=== PATIENT | female | born 1930 | race Caucasian/White ===

== ENCOUNTER 2017-04-30 07:49 | Observation (INO) | payer MEDICARE, MEDICAID ==
[2017-04-30] MEDS ORDERED: Ondansetron INJ* 2 MG/ML VIAL IV ONE (08:03)
[2017-04-30] MEDS ORDERED: Morphine INJ* 2 MG/ML 1 ML SYRINGE IV ONE (08:03)
[2017-04-30 09:08] LABS: Hematocrit 34 % (35-47); Hemoglobin 11.1 g/dl (12.0-16.0); Mean Corpuscular HGB Conc 33 g/dl (31-36); Mean Corpuscular Hemoglobin 28 pg (27-31); Mean Corpuscular Volume 86 fL (80-97); Mean Platelet Volume 9 um3 (7.4-10.4); Red Blood Count 3.91 10^6/ul (4.0-5.4); Red Cell Distribution Width 16 % (10.5-15); White Blood Count 6.6 10^3/ul (3.5-10.8)
[2017-04-30 09:25] LABS: Albumin 3.4 g/dL (3.2-5.2); BUN/Creatinine Ratio 22.4 (8-20); C Reactive Protein 7.22 mg/L (< 5.00); EGFR African American 81.6 (>60); EGFR Non-African American 63.4 (>60); Globulin 2.6 g/dL (2-4); Magnesium 2.2 mg/dL (1.9-2.7); Potassium 4.1 mmol/L (3.5-5.0); Total Bilirubin 0.5 mg/dL (0.2-1.0)
[2017-04-30] MEDS ORDERED: Iohexol 300* (CONTRAST) 10 ML SDV IV ONE (09:35)
[2017-04-30 10:40] LABS: Urine Bilirubin Negative (Negative); Urine Glucose Negative (Negative); Urine Nitrite Negative (Negative)
--- NOTE | 2017-04-30 10:59 | RAD ---
Indication: Abdominal pain. Contrast: Administered 87.7 ml of OMNIPAQUE 300 mgi/ml CT of the abdomen and pelvis was performed after oral and IV contrast administration. Coronal and sagittal reconstructed images were obtained. The lung bases demonstrate no pleural fluid, nodules or masses. Heart is of normal size without evidence of pericardial effusion. There is a hiatal hernia noted. The liver is normal in size. Lobulated contour of liver consistent with cirrhosis is noted. The gallbladder is mildly distended. Common duct is not dilated In the head of the pancreas there is a large nonenhancing mass measuring 3.6 cm in greatest dimension. Small peripancreatic lymph nodes are noted. There is pancreatic duct dilatation with atrophy of the neck, body and tail of the pancreas. Findings are consistent with mass at the head of the pancreas. The spleen is normal in size. No adrenal lesions are noted. The kidneys demonstrate no hydronephrosis. No dilated loops of bowel are noted. No retroperitoneal or pelvic lymphadenopathy is noted. No evidence of abdominal aortic aneurysm is noted. The colon demonstrates diverticulosis without definite evidence of diverticulitis. Urinary bladder is unremarkable. Bony structures demonstrate several areas of lucency which is nonspecific and may represent hemangiomas. IMPRESSION: 3 cm mass is noted at the head of the pancreas. Pancreatic ductal dilatation is noted. No definite hepatic lesions are noted although peripancreatic lymph nodes are noted. Multiple rib fractures are noted on the left. Findings discussed with Dr. Campo at 10:56 AM.
[2017-04-30] MEDS ORDERED: Ondansetron INJ* 2 MG/ML VIAL IV PRN (12:11)
[2017-04-30] MEDS ORDERED: Morphine INJ* 2 MG/ML 1 ML SYRINGE IV PRN (12:11)
[2017-04-30] MEDS ORDERED: Acetaminophen TAB* 325 MG PO PRN (12:11)
[2017-04-30] MEDS ORDERED: NS 0.9% 1000 ML* 1,000 ML IV SCH (12:15)
[2017-04-30] MEDS: Heparin VIAL(*) 5000 UNITS/ML VIAL (FIVE THOUSAND) SUBCUT SCH ×2 (14:36→21:07)
--- NOTE | 2017-04-30 15:30 | HP ---
ATTENDING PHYSICIAN ADDENDUM NOW INCLUDED ON THIS REPORT CC: Dr. Marge Schaefer; Dr. rCuz; Dr. Ruelas * HISTORY AND PHYSICAL: DATE OF ADMISSION: 04/30/17 PRIMARY CARE PROVIDER: Marge Schaefer MD. ATTENDING PHYSICIAN WHILE IN THE HOSPITAL: Arianna Tavarez MD *(report dictated by Reji Salinas NP) CONSULTING MICA SPREADER: Dr. Cruz. CONSULTING KEYPUNCHER: Dr. Ruelas. CHIEF COMPLAINT: Right upper quadrant pain. HISTORY OF PRESENT ILLNESS: Mrs. Rogers is an 87-year-old female patient who has a history of oqho-qj-jfvcoour intellectual developmental delay. She has a history of OCD, ADD, hypertension, esophageal stricture, sinus bradycardia, syncope, anxiety, esophagitis, hypothyroidism, arthritis, DJD, and hyperlipidemia. She comes in today stating that she woke up this morning, according to the aide that is with her, she took her pills just fine and then she suddenly developed some right upper quadrant discomfort and pain. Last week , she had episodes of nausea and vomiting and diarrhea, but they felt that it was related to gastroenteritis, viral illness that have been going around the facility. The symptoms resolved. She never had pain then. There have been no reports of weight loss. No fevers or chills. There was a concern because of the discomfort and the pain and they brought her into the hospital. She was evaluated. She denied having any chest pain. No shortness of breath. No recent cough. No recent fevers. Because of the discomfort, she had a CT scan, which ultimately showed a 3 cm pancreatic mass. Because of this we were asked to evaluate for admission. PAST MEDICAL HISTORY: Significant for: 1. OCD. 2. ADD. 3. Hypertension. 4. Esophageal stricture. 5. Sinus bradycardia. 6. Syncope. 7. Anxiety. 8. Esophagitis. 9. Hypothyroidism. 10. Arthritis. 11. DJD. 12. Hyperlipidemia. PAST SURGICAL HISTORY: Denied. MEDICATIONS: The home meds according to the list that was provided by the facility includes: 1. Robitussin 5 mg p.o. every 4 hours as needed. 2. Amlodipine 10 mg daily. 3. Nasacort 110 mcg both nares at bedtime. 4. Zantac 150 mg p.o. daily as needed. 5. Ditropan 5 mg p.o. daily. 6. Prilosec 20 mg daily. 7. Multivitamin 1 tablet daily. 8. Lisinopril 10 mg daily. 9. Synthroid 75 mcg daily. 10. Fexofenadine 180 mg daily. 11. Colace 100 mg daily. 12. Peridex mouthwash 5 cc p.o. b.i.d. 13. Calcium with vitamin D 1 tablet p.o. b.i.d. 14. Bacitracin 1 application topically daily. 15. Lipitor 20 mg a day. 16. Aspirin 81 mg daily. 17. Artificial tears 1 drop both eyes t.i.d. 18. Tylenol 650 mg every 4 hours as needed. ALLERGIES: Her allergies to medications include PENICILLIN. FAMILY HISTORY: Really unknown, she does state that her father may have been hit by a train. She, again, does not really know much about her family. SOCIAL HISTORY: She does not smoke. She does not drink. She does have one family member who is still involved in her life, I believe it is a niece; however, according to the [facility] paperwork, her healthcare proxy is the surrogate decision making committee. REVIEW OF SYSTEMS: There is no documented fever. She denied having any significant weight change. There was no double vision. There was no ear discharge. She denied having any rhinorrhea. No sore throat. No thyroid enlargement. Denied having any chest pain. There was no orthopnea. No nocturnal dyspnea. There was abdominal pain as per HPI. There was nausea and vomiting last week, but none now. No dysuria, no frequency. No seizure. There was no loss of consciousness. No pruritus and no skin ulcerations. Review of 14 systems completed, all others are negative. PHYSICAL EXAMINATION GENERAL: At this time, Mrs. Rogers is an 87-year-old female patient. She is sitting in the ER stretcher. She does not appear to be in any acute distress. VITAL SIGNS: Blood pressure 148/68, pulse of 89, respirations 18, O2 sat 94%, temperature 98.1. HEENT: Head is atraumatic and normocephalic. Eyes: EOMs are intact. Sclerae are anicteric, not pale. Throat: Oral mucosa appear to be moist. No oropharyngeal erythema. NECK: Supple. LUNGS: Clear to auscultation. No wheezes, rales, or rhonchi. HEART: Sounds S1, S2. Regular rate and rhythm. No murmurs, rubs, or gallops. ABDOMEN: Soft, flat. There was tenderness in the right upper quadrant. Bowel sounds present. EXTREMITIES: Pulses were 2+ throughout. She is able to move all 4 extremities with 5/5 strength. NEUROLOGIC: The patient is awake, alert, oriented x3. Tongue midline. Lithographic Press Operator Apprentice are equal. No gross focal deficits. SKIN: Grossly intact. LABORATORY DATA/DIAGNOSTIC STUDIES: Labs today revealed a WBC of 6.6, RBC of 3.91, hemoglobin 11.1, hematocrit of 34, platelet count of 138. Sodium is 138, potassium 4.1, chloride of 108, bicarb 24, BUN 19, creatinine of 0.85, glucose 124. Lactate 0.8. Calcium 9.0, mag 2.2. Total bili 0.5, AST 24, ALT 33, alk phos 133. CRP of 7.2. BNP is 66. Albumin is 3.4. Lipase was 189, amylase was 70. Urine obtained, negative. She did have an abdominal and pelvis CT scan, which showed, impression: 3 cm mass noted in the head of the pancreas, pancreatic ductal dilatation is noted. No definite hepatic lesions are noted, although peripancreatic lymph nodes are noted. There are multiple rib fractures on the left. I did touch-base with Dr. Tay about the rib fractures. They said that they appear to be old and healed. She did have an EKG obtained today as well, which revealed a normal sinus rhythm with a rate of 60, no ST elevations or T-wave inversions. Reviewed that the previous EKG was similar with the exception now she is not noted to be tachycardic. Old medical records were reviewed. ASSESSMENT AND PLAN: Mrs. Rogers is an 87-year-old female patient coming in to ER today with complaints of abdominal pain. On evaluation, was found to have pancreatic mass. She will be admitted under inpatient status for: 1. Pancreatic mass. Again, certainly this is concerning for possible neoplasm. Does not state that she is having so much discomfort; however, given the fact she does not appear to be obstructed, based on her labs. I did touch base with Dr. Ruelas who will evaluate the patient and I also touched base with Dr. Cruz who will also evaluate the patient, and I also touched base with our social workers here to get to possibly convene the surrogate decision making committee as we may need to do procedures to help better define this mass , but for the time being, I will control her pain with morphine and I have ordered p.r.n. Zofran should she be nauseous. I will hydrate her and put on a clear liquid diet. 2. Obsessive-compulsive disorder. Continue supportive care. 3. Attention deficit disorder. Continue supportive care. 4. Hypertension. Continue medicines as prescribed. 5. History of esophageal stricture, not an active issue. We will monitor. 6. Syncope. Again, not an active issue. We will follow. 7. Esophagitis. Continue PPI therapy. 8. Anxiety. Continue supportive care. 9. History of sinus bradycardia. She is stable now. We will monitor. 10. Hypothyroidism. Continue Synthroid. 11. Arthritis. Continue current medications as prescribed. 12. Degenerative joint disease. Continue p.r.n. Tylenol. 13. Hyperlipidemia. Continue her statin therapy. 14. DVT prophylaxis. She is high risk. She will be placed on heparin subcu. 15. Code status: She is full code. 16. Fluids, electrolytes, and nutrition: Clear liquid diet. TIME SPENT: Time spent on this admission was 60 minutes, greater than half the time was spent [id number] with the patient obtaining my history and physical, the other half of the time was spent going over the plan of care with the patient and implementing the plan of care. I did discuss plan of care with my attending, Dr. Tavarez, she is in agreement. REJI SALINAS NP ADDENDUM: Ms. Rogers is an 87-year-old female with moderate intellectual developmental delay who presented to the hospital complaining of right upper quadrant abdominal pain and she was noted to have a 3-cm pancreatic mass. The patient is going to be admitted for further evaluation by Oncology and GI. For further details of the patient's presentation and plan, please see history and physical dictated by Reji Salinas NP, on 04/30/17 with which I agree. ARIANNA ATVAREZ MD [id number]/[facility] #: [id number]/CPS #: [id number] KIRILL
--- NOTE | 2017-04-30 16:20 | HP ---
HISTORY AND PHYSICAL:* ADDENDUM: Ms. Rogers is an 87-year-old female with moderate intellectual developmental delay who presented to the hospital complaining of right upper quadrant abdominal pain and she was noted to have a 3-cm pancreatic mass. The patient is going to be admitted for further evaluation by Oncology and GI. For further details of the patient's presentation and plan, please see history and physical dictated by Reji Salinas NP, on 04/30/17 with which I agree. [id number]/[facility] #: [id number] [facility]
[2017-04-30] MEDS ORDERED: ALPRAZolam TAB* 0.25 MG PO ONE (16:44)
--- NOTE | 2017-04-30 18:33 | CONS ---
GASTROENTEROLOGY CONSULT: DATE OF CONSULTATION: 04/30/17 CONSULTING PHYSICIANS: Reji Salinas NP; Jaime Cruz; Marge Schaefer. REASON FOR CONSULTATION: Right-sided abdominal pain beginning this morning suddenly -the patient having a month of reduced appetite and 5 to 7-pound weight loss. HISTORY: This 87-year-old woman who has been in group homes for over 30 years developed abdominal pain this morning with no emesis, diarrhea or fever and was brought to the emergency room. She can give part of the history and the nurses ' aide, Amelie ([phone]) can give additional history which is further supplemented by the patient's healthcare sister in law / proxy, Kaci Rojas ([phone]), who sees the patient regularly for outings. Apparently, the patient has always had a good appetite and would frequently go back for seconds at the facility or restaurants. A month or two ago, she began eating less, going back for seconds a little less and there has been a slight weight loss of 5-7lbs There had not been any complaints of pain and no vomiting or dysphagia (no mention of the illness in the HPI). The nurses' aide says that last week the patient was generally fine and was fine over the weekend eating normally. She attended all her activities outside the home. Yesterday, she also had a normal day and a normal night's sleep. This morning, she suddenly started complaining of right-sided abdominal pain and began to rub the area. She did not eat breakfast and she has not had any diarrhea or fever. She was hospitalized 3 years ago with nausea and vomiting, and an upper endoscopy showed small to medium hiatal hernia and mild esophageal erosions. She had been on omeprazole from before the admission. This was continued. The symptoms all resolved and the cause was not clear. Caustic esophagitis from pills was considered. Anxiety was considered. In 2009, she had had a hyperplastic gastric antral polyp removed at EGD investigating vague complaints. It was not felt to be the cause She has no history of abdominal surgery or indeed any surgery PAST MEDICAL HISTORY: 1. Chronic anxiety. 2. Mental retardation. 3. Hypertension. 4. History of GERD with minimal esophageal ring - dilated 7 or 8 years ago to 18 mm with no rent observed. 5. Chronic fatigue - she has been using a walker for about a year getting short of breath with exertion. SOCIAL HISTORY: She is single and was placed in a alf decades ago. Per report of the patient's [id number], her mother was also placed in a alf as were 2 other sisters. Brother of the proxy one of her sisters, but all of them had leaving Kaci Rojas, her proxy. Her phone number is [phone]. She takes the patient out for lunch a couple of times a month and on other outings. REVIEW OF SYSTEMS: She had some intermittent falls, but has not had any fractures recently. There has been no head trauma. There is no history of bleeding, blood clots, VT, arrhythmias, stroke, neuropathy, hemoptysis, or TB. She does have a chortling cough every few days, but this is longstanding (at least 5 years per the aide with her) and she does not have any trouble with her bowels with no rectal bleeding and no need for laxatives. EXAM: She is an elderly woman in bed, rubbing her right upper quadrant recurrently. She is otherwise in no distress. HEENT exam is unremarkable. She has no icterus or adenopathy. The lungs are clear with no consolidation. Heart sounds are regular. Breast and pelvic exams deferred. The abdomen is symmetric with no scars. Slightly diminished bowel sounds, though they are of normal pitch. The abdomen is soft. There is no guarding or rigidity. Rectal: Deferred. Extremities show no edema. Neurologic is nonfocal with normal cranial nerves, movement of all 4 extremities, coordination, and alertness. She knows she is in the hospital, the identity of her proxy, and nurses' aide with her. IMAGING: CT of the abdomen shows a liver contour with large wavy indentations inferred to be cirrhosis. Pancreas is atrophic with no calcifications and the duct is grossly dilated and there is a mass in the head of the pancreas 3 to 3.5 cm. On a May 2014 CT the duct in retrospect was very mildly dilated. 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 The spleen is normal. LABORATORY DATA: Remarkable for normal white count of 6.6, hemoglobin 11.1 which is consistent with her baseline that is usually between 10.7 and 12.0. LFTs are normal except for a mild rise in alkaline phosphatase to 133 with bilirubin 0.5 and lipase 189. Old ALTs were normal back to 2007 except for a single 64 on 03/18/11 IMPRESSION: This 87-year-old woman with history of a known prior hiatal hernia and mild gastroesophageal reflux disease, on chronic maintenance omeprazole ( 20mg listed on her first [facility] H[facility]P in 2009) this morning had the onset of abdominal pain after a month of a mild reduction in appetite, though with no vomiting. Imaging shows a mass in the head of the pancreas, but no inflammatory signs. Her lipase is up mildly . Most likely, the current pain is due to a mild pancreatitis related to the expanding mass even though classically masses in this area are associated with "painless jaundice". The pain could be coming from some involvement of local venous structures in the right upper quadrant. It seems unlikely with this sequence of events (including no NSAIDs) that while on chronic omeprazole, she would have a peptic explanation for this. She has had symptoms in the past trigger an obsessional response and it may be that a relatively mild pain has triggered such a pattern again. It, therefore, seems reasonable to potentially give her a dose of a benzodiazepine and then a low-fat diet could be offered. Biliary colic and early cholecystitis cannot be ruled out, but there is no strong evidence for that currently - the GB wall is normal and WBC normal. In discussing the overall situation with her [id number]-qb-tdd/proxy, a strategy favoring a noninvasive approach seemed to be the proxy's choice and given that chemotherapy or surgery are exceedingly unlikely to be selected, this seems reasonable. The pancreatic mass may be starting to impinge upon the biliary system, but at this point that is very preliminary and early. There is no indication for ERCP or considering a stent now. There might be reason for palliation down the line, but it is much too early to begin making plans. [id number]/[facility] #: [id number] [facility] HOSPITALMariusz
--- NOTE | 2017-04-30 18:51 | ED ---
Katharine Miles SooYoung, scribed for George Campo MD on 04/30/17 at 0801 . Abdominal Pain/Female - HPI Summary HPI Summary: An 87 y/o F CARTER presents to ED with c/o RLQ abd pain onset this AM LICENSED THERAPIST. Pt lives in a state run residential and is present with a caregiver. Denies n/v/d, constipation. She states she has had similar past episodes of this pain. PMHx includes HTN, hyperlipidemia, CHF, pt deficit disorder, chronic esophagitis, OCD , hyperthyroidism, dry eye syndrome, aortic valve disorder, syncopal episodes. - History of Current Complaint Chief Complaint: EDAbdPain Stated Complaint: LOWER RIGHT ABD PAIN Time Seen by Provider: 04/30/17 07:56 Hx Obtained From: Patient, Family/Plumbing Foreman, Medical Records Hx Last Menstrual Period: n/a Onset/Duration: Lasting Hours, Still Present Timing: Constant Severity Currently: Severe Associated Signs and Symptoms: Positive: Other: - neg: constipation. Negative: Nausea, Vomiting, Diarrhea Allergies/Adverse Reactions: Allergies Allergy/AdvReac Type Severity Reaction Status Date / Time Penicillins Allergy Intermediate Unknown Verified 04/02/16 11:12 Reaction Details seasonal allergies Allergy Eyes Uncoded 04/02/16 11:12 Itchy/Swollen/Red/Watery Home Medications: Home Medications Bacitracin OINTMENT ROLF* 1 applic TOPICAL DAILY 04/30/17 [History Confirmed 05/11] Calcium Carbonate-Vitamin D [Calcium 600 + D] 1 tab PO BID 04/30/17 [History Confirmed 04/30/17] Multivitamins/Minerals TAB* [Theragran/minerals TAB*] 1 tab PO DAILY 04/30/17 [ History Confirmed 04/30/17] Oxybutynin XL TAB* [Ditropan XL TAB*] 5 mg PO DAILY 04/30/17 [History Confirmed 04/30/17] Triamcinolone Acetonide (Nasal [Nasacort Allergy 24Hr Chi] 110 mcg BOTH NARES BEDTIME 04/30/17 [History Confirmed 04/30/17] guaiFENesin LIQ* [Robitussin*] 5 mg PO Q4H PRN 04/30/17 [History Confirmed 04/30] PMH/Surg Hx/FS Hx/Imm Hx Previously Healthy: No Endocrine/Hematology History: Reports: Hx Anticoagulant Therapy - ASA, Hx Thyroid Disease - HYPO Denies: Hx Diabetes Cardiovascular History: Reports: Hx Angina, Hx Hypercholesterolemia, Hx Hypertension, Hx Syncope, Other Cardiovascular Problems/Disorders - IRREGULAR HEARTBEAT Denies: Hx Congestive Heart Failure, Hx Deep Vein Thrombosis, Hx Myocardial Infarction, Hx Pacemaker/ICD Respiratory History: Denies: Hx Asthma, Hx Chronic Obstructive Pulmonary Disease (COPD), Hx Lung Cancer GI History: Denies: Hx Gall Bladder Disease, Hx Gastrointestinal Bleed, Hx Ulcer, Hx Urosepsis Comment Only: Other GI Disorders - esophageal stricture History: Reports: Other Problems/Disorders - Stress incontinence Denies: Hx Kidney Stones, Hx Renal Disease Musculoskeletal History: Reports: Hx Arthritis - osteoarthritis, Other Musculoskeletal History - lt knee degenerative joint disease, osteoarthritis Sensory History: Reports: Hx Contacts or Glasses, Hx Vision Problem, Hx Hearing Aid, Hx Hearing Problem Comment Only: Other Sensory Impairments - R & L laser YAG capsulotomy 2006 Opthamlomology History: Reports: Hx Contacts or Glasses, Hx Vision Problem Comment Only: Other Sensory Impairments - R & L laser YAG capsulotomy 2006 Neurological History: Reports: Hx Developmental Delay, Other Neuro Impairments/ Disorders - ADD, OCD, Anxiety Denies: Hx Dementia, Hx Migraine, Hx Seizures, Hx Transient Ischemic Attacks (TIA) Psychiatric History: Reports: Hx Anxiety, Other Psychiatric Issues/Disorders - ADD, OCD Denies: Hx Depression, Hx Schizophrenia, Hx Bipolar Disorder - Cancer History Hx Chemotherapy: No Hx Radiation Therapy: No - Surgical History Surgery Procedure, Year, and Place: 2006 R&L laser YAG capsulotomy. moles removed - Immunization History Date of Tetanus Vaccine: 04/04/2010 Date of Influenza Vaccine: 08/31/13 Infectious Disease History: Reports: Hx of Known/Suspected MRSA Denies: Hx Clostridium Difficile, Hx Hepatitis, Hx Human Immunodeficiency Virus (HIV), Hx Shingles, Hx Tuberculosis, Hx Known/Suspected VRE, Hx Known/ Suspected VRSA, History Other Infectious Disease, Traveled Outside the [place] in Last 30 Days - Family History Known Family History: Positive: Unknown, Other - neg Breast CA - Social History Occupation: Disabled Lives: Jail Alcohol Use: None Hx Substance Use: No Substance Use Type: Reports: None Hx Tobacco Use: No Smoking Status (MU): Never Smoked Tobacco Review of Systems Negative: Fever Positive: Abdominal Pain, Other - neg: constipation. Negative: Vomiting, Diarrhea, Nausea All Other Systems Reviewed And Are Negative: Yes Physical Exam - Summary Physical Exam Summary: VITAL SIGNS: Reviewed. GENERAL: Patient is a well-developed and nourished female who is lying comfortable in the stretcher. Patient is not in any acute respiratory distress. PT IN MILD DISTRESS SECONDARY TO PAIN; MOANING DURING PE. HEAD AND FACE: Normocephalic and atraumatic. EYES: PERRLA, EOMI x 2, No injected conjunctiva. EARS: Hearing grossly intact. Ear canals and tympanic membranes are WNL. MOUTH: Oropharynx within normal limits. NECK: Supple, trachea is midline, no adenopathy, no JVD. CHEST: Symmetric, no tenderness at palpation LUNGS: Clear to auscultation bilaterally. MILD CRACKLES AT BASE OF LUNGS. CVS: RRR, S1 and S2 present, no murmurs or gallops appreciated. ABDOMEN: Soft. No signs of distention. Positive bowel sounds. No abdominal bruit or pulsations. TENDERNESS IN RLQ, GUARDING WITHOUT REBOUND. EXTREMITIES: FROM in all major joints, no edema, no cyanosis or clubbing. NEURO: Alert and oriented x 3. No acute neurological deficits. Speech is normal. SKIN: Dry and warm Triage Information Reviewed: Yes Vital Signs On Initial Exam: Initial Vitals BP 117/105 04/30/17 07:56 Vital Signs Reviewed: Yes Diagnostics - Vital Signs Vital Signs Temp Pulse Resp BP Pulse Ox 04/30/17 12:00 80 125/102 91 04/30/17 11:30 62 110/57 89 04/30/17 11:00 66 105/60 94 04/30/17 10:45 67 107/51 92 04/30/17 10:00 73 94 04/30/17 09:30 89 141/120 91 04/30/17 09:00 70 148/68 96 04/30/17 08:36 20 04/30/17 08:30 65 100/79 94 04/30/17 08:00 73 127/74 95 04/30/17 07:57 98.1 F 75 20 127/74 95 04/30/17 07:56 117/105 - Laboratory Lab Results: Lab Results 04/30/17 04/30/17 04/30/17 Range/Units 08:53 08:53 08:53 WBC 6.6 (3.5-10.8) 10^3/ul RBC 3.91 L (4.0-5.4) 10^6/ul Hgb 11.1 L (12.0-16.0) g/dl Hct 34 L (35-47) % MCV 86 (80-97) fL MCH 28 (27-31) pg MCHC 33 (31-36) g/dl RDW 16 H (10.5-15) % Plt Count 138 L (150-450) 10^3/ul MPV 9 (7.4-10.4) um3 Neut % (Auto) 64.7 (38-83) % Lymph % (Auto) 20.0 L (25-47) % Gilmer % (Auto) 8.1 (1-9) % Eos % (Auto) 6.5 H (0-6) % Baso % (Auto) 0.7 (0-2) % Absolute Neuts (auto) 4.3 (1.5-7.7) 10^3/ul Absolute Lymphs (auto) 1.3 (1.0-4.8) 10^3/ul Absolute Monos (auto) 0.5 (0-0.8) 10^3/ul Absolute Eos (auto) 0.4 (0-0.6) 10^3/ul Absolute Basos (auto) 0 (0-0.2) 10^3/ul Absolute Nucleated RBC 0 10^3/ul Nucleated RBC % 0 Sodium 138 (133-145) mmol/L Potassium 4.1 (3.5-5.0) mmol/L Chloride 108 (101-111) mmol/L Carbon Dioxide 24 (22-32) mmol/L Anion Gap 6 (2-11) mmol/L BUN 19 (6-24) mg/dL Creatinine 0.85 (0.51-0.95) mg/dL Est GFR ( Amer) 81.6 (>60) Est GFR (Non-Af Amer) 63.4 (>60) BUN/Creatinine Ratio 22.4 H (8-20) Glucose 124 H (70-100) mg/dL Lactic Acid 0.8 (0.5-2.0) mmol/L Calcium 9.0 (8.6-10.3) mg/dL Magnesium 2.2 (1.9-2.7) mg/dL Total Bilirubin 0.50 (0.2-1.0) mg/dL AST 24 (13-39) U/L ALT 33 (7-52) U/L Alkaline Phosphatase 133 H (34-104) U/L Total Creatine Kinase 53 (10-223) U/L C-Reactive Protein 7.22 H (< 5.00) mg/L B-Natriuretic Peptide ( - 100) pg/mL Total Protein 6.0 L (6.4-8.9) g/dL Albumin 3.4 (3.2-5.2) g/dL Globulin 2.6 (2-4) g/dL Albumin/Globulin Ratio 1.3 (1-3) Amylase 70 (29-103) U/L Lipase 189 H (11.0-82.0) U/L Urine Color Urine Appearance Urine pH (5-9) Ur Specific Henderson (1.010-1.030) Urine Protein (Negative) Urine Ketones (Negative) Urine Blood (Negative) Urine Nitrate (Negative) Urine Bilirubin (Negative) Urine Urobilinogen (Negative) Ur Leukocyte Esterase (Negative) Urine Glucose (Negative) 04/30/17 04/30/17 Range/Units 08:53 10:05 WBC (3.5-10.8) 10^3/ul RBC (4.0-5.4) 10^6/ul Hgb (12.0-16.0) g/dl Hct (35-47) % MCV (80-97) fL MCH (27-31) pg MCHC (31-36) g/dl RDW (10.5-15) % Plt Count (150-450) 10^3/ul MPV (7.4-10.4) um3 Neut % (Auto) (38-83) % Lymph % (Auto) (25-47) % Gilmer % (Auto) (1-9) % Eos % (Auto) (0-6) % Baso % (Auto) (0-2) % Absolute Neuts (auto) (1.5-7.7) 10^3/ul Absolute Lymphs (auto) (1.0-4.8) 10^3/ul Absolute Monos (auto) (0-0.8) 10^3/ul Absolute Eos (auto) (0-0.6) 10^3/ul Absolute Basos (auto) (0-0.2) 10^3/ul Absolute Nucleated RBC 10^3/ul Nucleated RBC % Sodium (133-145) mmol/L Potassium (3.5-5.0) mmol/L Chloride (101-111) mmol/L Carbon Dioxide (22-32) mmol/L Anion Gap (2-11) mmol/L BUN (6-24) mg/dL Creatinine (0.51-0.95) mg/dL Est GFR ( Amer) (>60) Est GFR (Non-Af Amer) (>60) BUN/Creatinine Ratio (8-20) Glucose (70-100) mg/dL Lactic Acid (0.5-2.0) mmol/L Calcium (8.6-10.3) mg/dL Magnesium (1.9-2.7) mg/dL Total Bilirubin (0.2-1.0) mg/dL AST (13-39) U/L ALT (7-52) U/L Alkaline Phosphatase (34-104) U/L Total Creatine Kinase (10-223) U/L C-Reactive Protein (< 5.00) mg/L B-Natriuretic Peptide 66 ( - 100) pg/mL Total Protein (6.4-8.9) g/dL Albumin (3.2-5.2) g/dL Globulin (2-4) g/dL Albumin/Globulin Ratio (1-3) Amylase (29-103) U/L Lipase (11.0-82.0) U/L Urine Color Yellow Urine Appearance Clear Urine pH 6.0 (5-9) Ur Specific Henderson 1.010 (1.010-1.030) Urine Protein Negative (Negative) Urine Ketones Negative (Negative) Urine Blood Negative (Negative) Urine Nitrate Negative (Negative) Urine Bilirubin Negative (Negative) Urine Urobilinogen Negative (Negative) Ur Leukocyte Esterase Negative (Negative) Urine Glucose Negative (Negative) Result Diagrams: 04/30/17 08:53 04/30/17 08:53 Lab Statement: Any lab studies that have been ordered have been reviewed, and results considered in the medical decision making process. - CT A/P CT CT Interpretation: Positive (See Comments) - IMPRESSION: 3 cm mass is noted at the head of the pancreas. Pancreatic ductal dilatation is noted. No definite hepatic lesions are noted although peripancreatic lymph nodes are noted. Multiple rib fractures are noted on the left. CT Interpretation Completed By: Radiologist - EKG 1 Cardiac Rate: NL - 60 bpm EKG Rhythm: Sinus Rhythm ST Segment: Normal - no ST elevation Abdominal Pain Fem Course/Dx - Course Course Of Treatment: An 87 y/o F BIBA presents to ED with c/o RLQ abd pain onset this AM LICENSED THERAPIST. Pt lives in a state run residential and is present with a caregiver. Denies n/v/d, constipation. She states she has had similar past episodes of this pain. PMHx includes HTN, hyperlipidemia, CHF, pt deficit disorder, chronic esophagitis, OCD, hyperthyroidism, dry eye syndrome, aortic valve disorder, syncopal episodes. Test results shows slightly chronic anemia, glucose of 124, CRP of 7.22. UA is neg for UTI. A/P CT shows 3 cm mass in pancreas and also multiple rib fractures. Therefore, I discussed my PE and findings with Dr. Tavarez, hospitalist, who accepted pt for admission. Pt is hemodynamically stable. - Diagnoses Differential Diagnosis: Positive: Appendicitis, Constipation, Diverticulitis, Ovarian Cyst, Renal Colic, Urinary Tract Infection Provider Diagnoses: Pancreatic mass, Rib fractures - Provider Notifications Discussed Care Of Patient With: Arianna Tavarez - hospitalist Instructed by Provider To: Admit As Inpatient Discharge - Discharge Plan Condition: Stable Disposition: ADMITTED TO [facility] The documentation as recorded by the Katharine landry SooYoung accurately reflects the service I personally performed and the decisions made by me, George Campo MD.
--- NOTE | 2017-05-01 01:55 | CONS ---
CC: Dr. Marge Schaefer; Dr. Db Ruelas; Dr. Jaime Cruz * MEDICAL ONCOLOGY CONSULTATION NOTE: DATE OF CONSULT: 04/30/17 REASON FOR CONSULT: Right upper quadrant pain and pancreatic mass. HISTORY OF PRESENT ILLNESS: Lyn Rogers is an 87-year-old female with a history of [id number] intellectual disability and developmental delay. She had lived at [facility] in [place] for most of her life and more recently had lived at [facility] here in [place]. At age 87, she is functional enough to go to a day [facility] 3 days per week. She also has a history of underlying ADD and OCD. She has had somewhat of a decreased appetite over the past month and her caregiver has reported approximately a 6- to 8-pound weight loss over that period of time. She has not had any complaints of abdominal pain, nausea, or vomiting until recently. Last week, she did have some nausea and vomiting and diarrhea, which was felt likely secondary to gastroenteritis as did other individuals at her facility. She subsequently "recovered and was eating well until yesterday." This morning, she woke up, took her medications fine, but then developed right upper quadrant abdominal pain. She denied any back pain, any shortness of breath or chest pain, any recent cough, any recent fevers, sweats, or chills. She was brought to the emergency room where a CT scan was obtained and revealed a 3-cm mass in the head of the pancreas along with pancreatic ductal dilatation. Small peripancreatic lymph nodes were noted, although these were still although prominent were of normal size. There is no evidence for any hepatic lesions. The liver does look somewhat cirrhotic. CT scan from 2013 does not show this pancreatic mass nor any enlarged lymph nodes. PAST MEDICAL HISTORY: 1. OCD and ADD. 2. Hypertension. 3. History of esophageal stricture. 4. History of anxiety. 5. Hypertension. 6. History of GERD with minimal esophageal ring, dilated approximately 7 to 8 years ago. 7. Hypothyroidism. 8. Hyperlipidemia. 9. Arthritis. PAST SURGICAL HISTORY: No past surgeries. MEDICATIONS: At the time of admission included: 1. Robitussin 5 mg q.4 hours. 2. Amlodipine 10 mg daily. 3. Zantac 150 mg daily p.r.n. 4. Ditropan 5 mg daily. 5. Prilosec 20 mg daily. 6. Lisinopril 10 mg daily. 7. Synthroid 75 mcg daily. 8. Fexofenadine 180 mg daily. 9. Colace 100 mg daily. 10. Peridex 5 cc p.o. b.i.d. 11. Calcium with vitamin D b.i.d. 12. Lipitor 20 mg daily. 13. Aspirin 81 mg daily. 14. Tylenol p.r.n. 15. Nasacort 110 mcg each nostril at bedtime. ALLERGIES: To PENICILLIN. FAMILY HISTORY: Noncontributory and mostly unknown. SOCIAL HISTORY: She has lived in [facility] in the distant past in [place] and more recently lived in a alf for several decades. Her brother had been her healthcare proxy in the past who . Her current healthcare proxy is her [id number], Kaci Rojas, phone number [phone]. She has never been a drinker or a smoker. REVIEW OF SYSTEMS: Occasional falls and more recently has been walking with a walker. No significant history of bleeding or bruising. No significant changes in bowel or bladder habits. Otherwise, review of systems as discussed above and as best I can tell otherwise negative. PHYSICAL EXAM: An 87-year-old female in no acute distress. Vital Signs: Stable, afebrile. HEENT: PERRL, EOMI. No erythema or exudates. No scleral icterus. No palpable cervical, supraclavicular, or axillary adenopathy. Lungs : Clear. Heart: Regular rate and rhythm without murmurs, rubs, or gallops. Abdomen: Soft, mild tenderness in the right side more so in the right lower quadrant. Pain in the right upper quadrant. There is no guarding or rebound. Back: No CVA or spinal tenderness. Extremities: No clubbing, cyanosis, or edema. Neurologic Exam: Without focal deficits. The patient is oriented to person, hospital, and the name of her [id number]. LABORATORY DATA: CBC with a white count of 6600, hemoglobin 11.1, platelet count 138,000. Chemistry studies: Normal LFTs, normal renal function, normal electrolytes, amylase 70, lipase 189. IMPRESSION: An 87-year-old female, who presents now with a pancreatic mass associated with abdominal pain. It is unclear whether the abdominal pain is related to pancreatic mass or not as at least to my exam it seems to be more in the right lower quadrant where she is having pain. There is no evidence for any biliary colic of cholecystitis. There is no ductal dilatation or any blockage to explain her pain either and is concerning that her pain potentially could be due to the pancreatic mass which certainly could be malignancy. This mass was not present on previous CT scan in 2014. If this were to be a pancreatic cancer, she certainly has no major comorbidities, more so than anybody else of her age group. There is no evidence for any distant disease. Statistics regarding pancreatic cancer include if treated aggressively, lymph node negative pancreatic cancer has a 27%, 5- year survival with median survival of 12 to 20 months; lymph node positive will have 11%, 5-year survival with median survival of 6 to 10 months; metastatic disease with median survival of less than 6 months. It should be noted that even at her age, there is not a dramatic drop of in terms of numbers versus younger patients. Per an article published in Journal of Gastrointestinal Surgery in 2006, patients over the age of 80 have mortality rate from a Whipple surgery of 4% with a complication rate of 53% as opposed to complication rate of 41%, mortality of 2% in patients under the age of 80. One-year survival for patients over the age of 80 who are able to do undergo a Whipple procedure and was appropriate was over 50%. Additional data comes from [facility] data and that large national inpatient sample from nationwide study for patients over the age of 80, the in-hospital mortality was as high as 15% for those over the age of 80 undergoing surgery compared to 6% for those in their 60s. Five-year survival for individuals undergoing Whipple for over age 80 was 11%. At the present time, my recommendation would be to see if her abdominal pain quiets down. If it does, would not recommend ERCP, further workup, or stent placement. If her symptoms were to persist, further workup would certainly be reasonable. CA 19-9 is often times used in the settings such as this to try to determine if it is pancreatic cancer. It is not a definitive test and other causes of pancreatic inflammation such as pancreatitis can cause mild elevation of CA19-9, although not typically dramatic elevations. Situation will be discussed further with her caregivers and with her [id number], who is her healthcare proxy. [id number]/[facility] #: [id number] KIRILL
[2017-05-01] MEDS: Heparin VIAL(*) 5000 UNITS/ML VIAL (FIVE THOUSAND) SUBCUT SCH (05:45)
[2017-05-01 05:54] LABS: Hematocrit 29 % (35-47); Hemoglobin 9.7 g/dl (12.0-16.0); Mean Corpuscular HGB Conc 33 g/dl (31-36); Mean Corpuscular Hemoglobin 28 pg (27-31); Mean Corpuscular Volume 86 fL (80-97); Mean Platelet Volume 10 um3 (7.4-10.4); Red Blood Count 3.41 10^6/ul (4.0-5.4); Red Cell Distribution Width 16 % (10.5-15); White Blood Count 5.5 10^3/ul (3.5-10.8)
[2017-05-01] MEDS ORDERED: Levothyroxine TAB* 75 MCG TAB PO SCH (06:00)
[2017-05-01 06:07] LABS: BUN/Creatinine Ratio 16.8 (8-20); Calcium 8.2 mg/dL (8.6-10.3); Direct Bilirubin 0.1 mg/dL (0.03-0.18); EGFR African American 66.8 (>60); Globulin 2.3 g/dL (2-4); Indirect Bilirubin 0.2 mg/dL (0.3-1.0); Potassium 4.4 mmol/L (3.5-5.0); Total Bilirubin 0.3 mg/dL (0.2-1.0); Total Protein 5.3 g/dL (6.4-8.9)
[2017-05-01] MEDS ORDERED: Omeprazole CAP* 20 MG PO SCH (07:30)
[2017-05-01] MEDS ORDERED: Atorvastatin* 20 MG TAB PO SCH (09:00)
[2017-05-01] MEDS ORDERED: Lisinopril TAB* 10 MG PO SCH (09:00)
[2017-05-01] MEDS ORDERED: amLODIPine TAB* 5 MG PO SCH (09:00)
[2017-05-01] MEDS ORDERED: Oxybutynin XL TAB* 5 MG PO SCH (09:00)
[2017-05-01] MEDS ORDERED: Aspirin EC Low Dose* 81 MG TAB.EC PO SCH (09:00)
[2017-05-01] MEDS ORDERED: Docusate CAP* 100 MG PO SCH (09:00)
[2017-05-01] MEDS ORDERED: oxyCODONE TAB* 5 MG TAB PO PRN (09:40)
[2017-05-01] MEDS ORDERED: oxyCODONE SR TAB(*) 10 MG TAB.SR PO SCH (10:00)
--- NOTE | 2017-05-01 10:08 | PN ---
"Subjective Date of Service: 05/01/17 Interval History: Some RUQ pain. No other c/o. Objective Active Medications: Acetaminophen (Tylenol Tab*) 650 mg PO Q4H PRN PRN Reason: FEVER/PAIN Amlodipine Besylate (Norvasc Tab*) 10 mg PO DAILY [facility] Last Admin: 05/01/17 09:15 Dose: 10 mg Aspirin (Aspirin Ec Low Dose*) 81 mg PO DAILY [facility] Last Admin: 05/01/17 09:15 Dose: 81 mg Atorvastatin Calcium (Lipitor*) 20 mg PO DAILY [facility] Last Admin: 05/01/17 09:15 Dose: 20 mg Docusate Sodium (Colace Cap*) 100 mg PO DAILY [facility] Last Admin: 05/01/17 09:15 Dose: 100 mg Heparin Sodium (Porcine) (Heparin Vial(*)) 5,000 units SUBCUT Q8HR [facility] Last Admin: 05/01/17 05:45 Dose: 5,000 units Levothyroxine Sodium (Synthroid Tab*) 75 mcg PO 0600 [facility] Last Admin: 05/01/17 05:45 Dose: 75 mcg Lisinopril (Prinivil Tab*) 10 mg PO DAILY [facility] Last Admin: 05/01/17 09:15 Dose: 10 mg Omeprazole (Prilosec Cap*) 20 mg PO 0730 [facility] Last Admin: 05/01/17 09:15 Dose: 20 mg Ondansetron HCl (Zofran Inj*) 4 mg IV Q6H PRN PRN Reason: NAUSEA Last Admin: 04/30/17 21:07 Dose: 4 mg Oxybutynin Chloride (Ditropan Xl Tab*) 5 mg PO DAILY [facility] Last Admin: 05/01/17 09:15 Dose: 5 mg Oxycodone HCl (Oxycontin(*)) 10 mg PO Q12HR [facility] Oxycodone HCl (Roxycodone Tab*) 5 mg PO Q4H PRN PRN Reason: PAIN Vital Signs 04/30/17 04/30/17 04/30/17 12:30 13:36 13:43 Temperature 98.9 F 98.9 F Pulse Rate 65 76 76 Respiratory 18 18 Rate Blood Pressure 109/60 132/61 132/61 (mmHg) O2 Sat by Pulse 92 95 95 Oximetry 04/30/17 04/30/17 04/30/17 16:46 20:00 20:03 Temperature 98.0 F 98.1 F Pulse Rate 76 78 Respiratory 16 18 20 Rate Blood Pressure 122/66 98/47 (mmHg) O2 Sat by Pulse 95 95 Oximetry 04/30/17 04/30/17 04/30/17 20:08 21:07 22:07 Temperature Pulse Rate Respiratory 18 18 Rate Blood Pressure 122/68 (mmHg) O2 Sat by Pulse Oximetry 04/30/17 05/01/17 23:34 03:25 Temperature 98.9 F 98.7 F Pulse Rate 72 72 Respiratory 16 16 Rate Blood Pressure 107/40 111/53 (mmHg) O2 Sat by Pulse 94 94 Oximetry Oxygen Devices in Use Now: None Appearance: Alert, partly up in bed. In good spirits. Looks comfortable at rest. Eyes: No Scleral Icterus Abdominal: No Hepatosplenomegaly, - - mild RUQ tenderness. Nl BS. Extremities: No Edema, No Clubbing, Cyanosis, - Skin: No Rash or Ulcers, No Nodules or Sclerosis, - Neurological: NL Sensation, - - Cooperative. Fair verbal skills. No tremor. Result Diagrams: 05/01/17 05:25 05/01/17 05:25 Additional Lab and Data: Lab Results 04/30/17 04/30/17 04/30/17 Range/Units 08:53 08:53 08:53 WBC 6.6 (3.5-10.8) 10^3/ul RBC 3.91 L (4.0-5.4) 10^6/ul Hgb 11.1 L (12.0-16.0) g/dl Hct 34 L (35-47) % MCV 86 (80-97) fL MCH 28 (27-31) pg MCHC 33 (31-36) g/dl RDW 16 H (10.5-15) % Plt Count 138 L (150-450) 10^3/ul MPV 9 (7.4-10.4) um3 Neut % (Auto) 64.7 (38-83) % Lymph % (Auto) 20.0 L (25-47) % [place] % (Auto) 8.1 (1-9) % Eos % (Auto) 6.5 H (0-6) % Baso % (Auto) 0.7 (0-2) % Absolute Neuts (auto) 4.3 (1.5-7.7) 10^3/ul Absolute Lymphs (auto) 1.3 (1.0-4.8) 10^3/ul Absolute Monos (auto) 0.5 (0-0.8) 10^3/ul Absolute Eos (auto) 0.4 (0-0.6) 10^3/ul Absolute Basos (auto) 0 (0-0.2) 10^3/ul Absolute Nucleated RBC 0 10^3/ul Nucleated RBC % 0 Sodium 138 (133-145) mmol/L Potassium 4.1 (3.5-5.0) mmol/L Chloride 108 (101-111) mmol/L Carbon Dioxide 24 (22-32) mmol/L Anion Gap 6 (2-11) mmol/L BUN 19 (6-24) mg/dL Creatinine 0.85 (0.51-0.95) mg/dL Est GFR ( Amer) 81.6 (>60) Est GFR (Non-Af Amer) 63.4 (>60) BUN/Creatinine Ratio 22.4 H (8-20) Glucose 124 H (70-100) mg/dL Lactic Acid 0.8 (0.5-2.0) mmol/L Calcium 9.0 (8.6-10.3) mg/dL Magnesium 2.2 (1.9-2.7) mg/dL Total Bilirubin 0.50 (0.2-1.0) mg/dL AST 24 (13-39) U/L ALT 33 (7-52) U/L Alkaline Phosphatase 133 H (34-104) U/L Total Creatine Kinase 53 (10-223) U/L C-Reactive Protein 7.22 H (< 5.00) mg/L B-Natriuretic Peptide ( - 100) pg/mL Total Protein 6.0 L (6.4-8.9) g/dL Albumin 3.4 (3.2-5.2) g/dL Globulin 2.6 (2-4) g/dL Albumin/Globulin Ratio 1.3 (1-3) Amylase 70 (29-103) U/L Lipase 189 H (11.0-82.0) U/L Urine Color Urine Appearance Urine pH (5-9) Ur Specific Vader (1.010-1.030) Urine Protein (Negative) Urine Ketones (Negative) Urine Blood (Negative) Urine Nitrate (Negative) Urine Bilirubin (Negative) Urine Urobilinogen (Negative) Ur Leukocyte Esterase (Negative) Urine Glucose (Negative) 04/30/17 04/30/17 Range/Units 08:53 10:05 WBC (3.5-10.8) 10^3/ul RBC (4.0-5.4) 10^6/ul Hgb (12.0-16.0) g/dl Hct (35-47) % MCV (80-97) fL MCH (27-31) pg MCHC (31-36) g/dl RDW (10.5-15) % Plt Count (150-450) 10^3/ul MPV (7.4-10.4) um3 Neut % (Auto) (38-83) % Lymph % (Auto) (25-47) % [place] % (Auto) (1-9) % Eos % (Auto) (0-6) % Baso % (Auto) (0-2) % Absolute Neuts (auto) (1.5-7.7) 10^3/ul Absolute Lymphs (auto) (1.0-4.8) 10^3/ul Absolute Monos (auto) (0-0.8) 10^3/ul Absolute Eos (auto) (0-0.6) 10^3/ul Absolute Basos (auto) (0-0.2) 10^3/ul Absolute Nucleated RBC 10^3/ul Nucleated RBC % Sodium (133-145) mmol/L Potassium (3.5-5.0) mmol/L Chloride (101-111) mmol/L Carbon Dioxide (22-32) mmol/L Anion Gap (2-11) mmol/L BUN (6-24) mg/dL Creatinine (0.51-0.95) mg/dL Est GFR ( Amer) (>60) Est GFR (Non-Af Amer) (>60) BUN/Creatinine Ratio (8-20) Glucose (70-100) mg/dL Lactic Acid (0.5-2.0) mmol/L Calcium (8.6-10.3) mg/dL Magnesium (1.9-2.7) mg/dL Total Bilirubin (0.2-1.0) mg/dL AST (13-39) U/L ALT (7-52) U/L Alkaline Phosphatase (34-104) U/L Total Creatine Kinase (10-223) U/L C-Reactive Protein (< 5.00) mg/L B-Natriuretic Peptide 66 ( - 100) pg/mL Total Protein (6.4-8.9) g/dL Albumin (3.2-5.2) g/dL Globulin (2-4) g/dL Albumin/Globulin Ratio (1-3) Amylase (29-103) U/L Lipase (11.0-82.0) U/L Urine Color Yellow Urine Appearance Clear Urine pH 6.0 (5-9) Ur Specific Vader 1.010 (1.010-1.030) Urine Protein Negative (Negative) Urine Ketones Negative (Negative) Urine Blood Negative (Negative) Urine Nitrate Negative (Negative) Urine Bilirubin Negative (Negative) Urine Urobilinogen Negative (Negative) Ur Leukocyte Esterase Negative (Negative) Urine Glucose Negative (Negative) Assess/Plan/Problems-Billing Assessment: - Patient Problems (1) Pancreatic mass Current Visit: Yes Status: Acute Comment: CA19-9 pending. Non-enhancing mass, elevated lipase. ? resolving pancreatitis vs pancratic ca. Last pain med 9M 04/30 over 12 hrs ago. Ate her entire low-fat breakfast. Discussed with Dr. Merritt to discuss case. Dr. Cruz's and Dr. Ruelas's consults also appreciated. If CA19-9 equivocal or nl she could be referred for enoscopic US guided needle bx of the mass. Rx oxycodone IR 5 mg q 4 hr PRN. (2) Developmental delay, moderate Current Visit: Yes Status: Acute Code(s): R62.50 - UNSP LACK OF EXPECTED NORMAL PHYSIOL DEV IN CHILDHOOD SNOMED Code(s): 191178896 Comment: Lives in [facility]. Aide at her bedside has known her about a month. Status and Disposition: Search Terms: oz jarquin, 1930 Search Date: 05/01/2017 10:52:46 AM The Drug Utilization Report below displays all of the controlled substance prescriptions, if any, that your patient has filled in the last twelve months. The information displayed on this report is compiled from pharmacy submissions to the Department, and accurately reflects the information as submitted by the pharmacies. This report was requested by: Chaz Junior | Reference #: [id number] There are no results for the search terms that you entered. Discharge now. Fup Dr. Ksenia Schaefer, Dr. Ruelas."
[2017-05-01 11:24] VITALS: BP 117/47
--- NOTE | 2017-05-01 14:22 | CONS ---
CC: Dr. Marge Schaefer; Dr. Jaime Cruz; Reji Salinas NP. * PALLIATIVE CARE CONSULTATION: DATE OF CONSULT: 05/01/17 PRIMARY CARE PHYSICIAN: Dr. Marge Schaefer. ONCOLOGIST: Dr. Jaime Cruz. REFERRING PHYSICIAN: Reji Salinas NP. HOSPITAL COURSE: This is an 87-year-old female with a past medical history of intellectual developmental disability in [facility] who presented to the emergency on the with right upper quadrant pain. The patient was found to have a pancreatic mass on CAT and was admitted for further evaluation and was seen by GI and Oncology. On my encounter, most of my history was obtained from the notes and from aide who has known the patient off and on for several years. [facility] weight which do they check monthly. Her weight has been stable between 145 to 147 pounds for the past seven months. They stated that she always has a hearty appetite without any issues. On admission here her weight is 138.6 pounds. At breakfast this morning, the aide said that she ate 100%, she got up and she ambulates with a walker. She took a shower and was not complaining of any pain until I arrived and has been complaining since of abdominal pain. The patient states that she is aware that she is in the hospital. She knows that it is Saturday. I asked her if who would help her make medical decisions if she could not make them for herself and she designated her [id number] Kaci. When I asked her what kind of medical decision she would help her make, she said she was not sure. The patient denies any chest pain, no shortness of breath. She denies being hungry at this time. She is not clear when her last bowel movement was. Otherwise remaining review of systems is negative. The patient was seen in consultation by Dr. Ruelas who felt that most likely the current pain is due to mild pancreatitis related to the expanding mass, even though classically the masses in this area are associated with painless jaundice. The pain could be coming from some involvement of local venous structures. Dr. Ruelas spoke with the [id number] Kaci who favored a noninvasive approach, who did not feel there was an indication for an ERCP or stenting at this time. Dr. Cruz was also consulted and recommended managing her abdominal pain and seeing if it quiets down. If it does improve, would not recommend further workup including ERCP or stent placement. If her symptoms did persist to pursue further workup and to follow up on CA 19-9, as it is not entirely clear that this is pancreatic cancer based on imaging alone. Social work has been involved to help the patient designate her healthcare proxy; however, the patient has not had a capacity evaluation by a psychologist to confirm that she can designate a healthcare proxy at this time. I spoke with the aide and the nurse who was also present to make sure the psychologist evaluate her to allow her to make decisions to designate Kaci Rojas as her healthcare proxy. If Kaci Rojas can in fact be legally her healthcare proxy, to discuss advanced care planning with her including do not resuscitate and do not intubate. As the patient is in the process of being discharged home, the nurse agrees with following up with the psychologist for capacity evaluation and to follow up on advance care planing needs. I also recommended that she followup with Oncology to further evaluate the mass and for the followup on the CA 19-9. Because the patient at baseline is going to day hab program 3 days a week, does not appear to have to lost any weight in [facility], there may be a scale discrepancy here than at home. If she is eating well, then I would reevaluate her for hospice and not deem her eligible for hospice at this time. Otherwise, remaining review of systems is negative. PAST MEDICAL HISTORY: 1. Intellectual developmental disability resides at [facility]. 2. OCD and ADD. 3. Hypertension. 4. History of esophageal stricture. 5. History of anxiety. 6. Hypertension. 7. History of GERD with minimal esophageal ring dilated approximately 7 to 8 years ago. 8. Hypothyroidism. 9. Hyperlipidemia. 10. Arthritis. INPATIENT MEDICATIONS: 1. Alprazolam 0.25 mg as needed. 2. Tylenol 650 mg every 4 hours as needed. 3. Aspirin 81 mg daily. 4. Lipitor 20 mg daily. 5. Colace 100 mg daily. 6. Heparin 5000 units subcu t.i.d. 7. Synthroid 25 mg daily. 8. Lisinopril daily. 9. Omeprazole 20 mg daily. 10. Zofran 4 mg every 6 hours as needed. 11. Oxybutynin XL 5 mg p.o. daily. 12. Amlodipine 10 mg daily. 13. Oxycodone 4 mg every 4 hours as needed. ALLERGIES: PENICILLIN. SOCIAL HISTORY: As mentioned, the patient resides at [facility]. She ambulates with a walker. She participates in day hab program 3 days a week. No history of smoking, alcohol or illicit drug use. Her [id number] Kaci Rojas is the designated healthcare proxy, but needs capacity evaluation first. Her phone number [phone]. CODE STATUS: At this time, the patient is a full code. REVIEW OF SYSTEMS: As mentioned in the HPI. FAMILY HISTORY: Is unknown. PHYSICAL EXAMINATION: Vitals: Temp is 98.5, pulse rate 85, respiratory rate 20 , oxygen saturation 92% on room air, blood pressure is 117/47. General: In no acute distress was sleeping comfortably, then when awoken rubbing her belly intermittently. HEENT: Neck supple. No lymphadenopathy. Pupils are equal, reactive, and anicteric. Head: Normo-cephalic. Oropharynx: Mucous membranes moist. Cardiac: Regular rate and rhythm. Soft systolic murmur heard throughout. Respiratory: Diminished breath sounds. No wheezes, rhonchi or rales. Abdomen: Normal bowel sounds, soft, nondistended. The patient with significant tenderness with light palpation mostly in the right lower quadrant. RADIOGRAPHIC DATA: Abdominal and pelvis CT: A 3 cm mass is noted at the head of the pancreas, pancreatic ductal dilatation is noted. No definite hepatic lesions are noted, although peripancreatic lymph nodes are noted. Multiple wrist fractures are noted on the left. ASSESSMENT: This is an 87-year-old female with past medical history of intellectual developmental disability who presented to the emergency room with abdominal pain, found to have a 3 cm pancreatic mass at the head of the pancreas. On my physical exam, her abdominal pain does not correlate with a pancreatic mass as of light touch palpation in her right lower quadrant. Her pain does not seem to be constant and it seems to be intermittent as this morning she ate well and ambulated and had no complaints of pain until my arrival. I agree with Dr. Cruz watching her abdominal pain and no further workup at this time. I spoke with staff there including the nurse to get her capacity evaluation done to confirm that she is able to designate a healthcare proxy and to discuss advance care planning. I would followup with Dr. Cruz regarding this mass to determine further workup or evaluation for this at this time. I would not consider her a candidate for hospice but should be in the PATH referral program and to be followed up closely. I will also have them followup regarding her rib fractures and to make sure this correlated with a fall in the past. Thank you for this consultation. PATIENT TIME: Greater than 90 minutes spent doing consultation, more than half the time spent in direct patient contact. [id number]/[facility] #: [id number] KIRILL
--- NOTE | 2017-05-01 16:29 | DS ---
CC: Dr. Marge Schaefer; Dr. Ruelas DISCHARGE SUMMARY: DATE OF ADMISSION: 04/30/17 DATE OF DISCHARGE: 05/01/17 HISTORY: This 87-year-old woman is a resident of [facility]. They noticed, over the last week, occ asional episodes of emesis x1, occasional right upper quadrant pain. It seemed to be a little more severe or for some reason she was brought to the emergency room with the complaint of right upper qu adrant pain on 04/30/17. CT scan of the abdomen and pelvis showed a nonenhancing 3 cm mass in the head of the pancreas. Amyl ase was 189, a repeat the next morning was 140. She was not jaundiced. Her pain appeared to be easily controlled with modest amount of analgesic. She actually went over 1 2 hours overnight without any analgesics. She ate all her low-fat breakfast the morning of discharge. She seemed pretty much at her baseline. She did, when asked, say she had right upper quadrant pain. At this point, it is not clear if she has resolving pancreatitis with a pseudo mass or she has pancr eatic cancer. A CA19-9 was sent out. If this is markedly elevated, then diagnostic workup will pro bably stop there with a diagnosis of pancreatic cancer. If the CA19-9 is equivocal or normal, then she could be referred for endoscopic ultrasound-guided needle biopsy of the mass. She was prescribed oxycodone 5 mg p.o. every 4 hours p.r.n. pain, maximum daily dose of 4. DISCHARGE DIAGNOSES: 1. Pancreatic mass. 2. Developmental delay. 3. Hypertension. DISCHARGE MEDICATIONS: 1. Acetaminophen 650 mg every 4 hours p.r.n. 2. Oxycodone 5 mg every 4 hours p.r.n. 3. Lisinopril 10 mg daily. 4. Artificial tears one drop to both eyes t.i.d. 5. Ranitidine 150 mg daily p.r.n. 6. Amlodipine 10 mg daily. 7. Omeprazole 20 mg daily. 8. Fexofenadine 180 mg daily. 9. Docusate 100 mg daily. 10. Atorvastatin 20 mg daily. 11. Aspirin 81 mg daily. 12. Levothyroxine 75 mcg daily. 13. Chlorhexidine 5 mg b.i.d. mouthwash. 14. Guaifenesin 5 mL every 4 hours p.r.n. 15. Bacitracin apply daily p.r.n. 16. Triamcinolone nasal spray 110 mcg both nares at bedtime. 17. Calcium carbonate with vitamin D, one tablet twice daily. 18. Oxybutynin XL 5 mg daily. 19. Multivitamin with mineral daily. FOLLOWUP: The patient is to see Dr. Ruelas in 1 to 2 weeks. [id number]/[facility] #: [id number]
== END 2017-05-01 14:25 | disposition home or self-care (01) ==
LOC: ED 07:49 → INTOOBSV 12:08 → MED 12:08
PROVIDERS: ADMIT Internal Medicine; ATTEND Internal Medicine
DX: K86.9 Disease of pancreas, unspecified (principal); R62.50 Unspecified lack of expected normal physiological development in childhood; I10 Essential (primary) hypertension; R10.31 Right lower quadrant pain; K59.00 Constipation, unspecified; Z86.79 Personal history of other diseases of the circulatory system; Z87.898 Personal history of other specified conditions; Z87.19 Personal history of other diseases of the digestive system
CPT/HCPCS: 36415; 74177; 80048; 80053; 80076; 81003; 82150; 82550; 83605; 83690; 83735; 83880; 85025; 85610; 86140; 86301; 93005; 96374; 96375; 99284; A9270-GY; G0378; J1644; J2270; J2405; Q9967

== ENCOUNTER 2017-05-21 10:58 | Emergency (ER) | payer MEDICARE, MEDICAID ==
[2017-05-21 12:47] LABS: Hematocrit 33 % (35-47); Hemoglobin 10.9 g/dl (12.0-16.0); Mean Corpuscular HGB Conc 33 g/dl (31-36); Mean Corpuscular Hemoglobin 29 pg (27-31); Mean Corpuscular Volume 89 fL (80-97); Mean Platelet Volume 10 um3 (7.4-10.4); Red Blood Count 3.76 10^6/ul (4.0-5.4); Red Cell Distribution Width 17 % (10.5-15); White Blood Count 7.9 10^3/ul (3.5-10.8)
[2017-05-21 13:16] LABS: Albumin 3.5 g/dL (3.2-5.2); BUN/Creatinine Ratio 17.3 (8-20); C Reactive Protein 32.3 mg/L (< 5.00); Calcium 9.1 mg/dL (8.6-10.3); EGFR African American 60.6 (>60); EGFR Non-African American 47.1 (>60); Globulin 2.7 g/dL (2-4); Potassium 4.2 mmol/L (3.5-5.0); Total Bilirubin 0.5 mg/dL (0.2-1.0); Total Protein 6.2 g/dL (6.4-8.9)
[2017-05-21 14:18] VITALS: BP 100/43
--- NOTE | 2017-05-21 15:20 | ED ---
Rome Miles Thomas, scribed for Joel Matthew MD on 05/21/17 at 1132 . Abdominal Pain/Female - HPI Summary HPI Summary: Pt is an 87 y/o F with a Hx of pancreatic cancer presenting to the ED c/o R- sided abd pain rated 2/10. The pt states that her pain began this AM but her aide claims that the pt has thanh in chronic pain that worsened this AM. Additionally c/o N/V and decreased appetite (per aide). Her aide states that the pt has a filled prescription for pain meds, but the pt refuses to take these pain meds, claiming that "they don't work". Her last BM was yesterday at 15:00. She has not eaten today. - History of Current Complaint Chief Complaint: EDAbdPain Stated Complaint: NAUSEA Time Seen by Provider: 05/21/17 11:14 Hx Obtained From: Patient, Family/Sample Maker Original Hx Last Menstrual Period: n/a Onset/Duration: Lasting Hours - per pt, pain began this AM, Still Present Timing: Constant Pain Intensity: 2 Pain Scale Used: 0-10 Numeric Location: Other - R sided Associated Signs and Symptoms: Positive: Nausea, Vomiting, Other: - POS: decreased appetite (per aide) Allergies/Adverse Reactions: Allergies Allergy/AdvReac Type Severity Reaction Status Date / Time Penicillins Allergy Intermediate Unknown Verified 04/02/16 11:12 Reaction Details seasonal allergies Allergy Eyes Uncoded 04/02/16 11:12 Itchy/Swollen/Red/Watery Home Medications: Home Medications Naproxen TAB* [Naprosyn 250 mg TAB*] 500 mg PO BID PRN 05/21/17 [History Confirmed 05/21/17] PMH/Surg Hx/FS Hx/Imm Hx Previously Healthy: No Endocrine/Hematology History: Reports: Hx Anticoagulant Therapy - ASA, Hx Thyroid Disease - HYPO Denies: Hx Diabetes Cardiovascular History: Reports: Hx Angina, Hx Hypercholesterolemia, Hx Hypertension, Hx Syncope, Other Cardiovascular Problems/Disorders - IRREGULAR HEARTBEAT Denies: Hx Congestive Heart Failure, Hx Deep Vein Thrombosis, Hx Myocardial Infarction, Hx Pacemaker/ICD Respiratory History: Denies: Hx Asthma, Hx Chronic Obstructive Pulmonary Disease (COPD), Hx Lung Cancer GI History: Denies: Hx Gall Bladder Disease, Hx Gastrointestinal Bleed, Hx Ulcer, Hx Urosepsis Comment Only: Other GI Disorders - esophageal stricture History: Reports: Other Problems/Disorders - Stress incontinence Denies: Hx Kidney Stones, Hx Renal Disease Musculoskeletal History: Reports: Hx Arthritis - osteoarthritis, Other Musculoskeletal History - lt knee degenerative joint disease, osteoarthritis Sensory History: Reports: Hx Contacts or Glasses, Hx Vision Problem, Hx Hearing Aid, Hx Hearing Problem Comment Only: Other Sensory Impairments - R & L laser YAG capsulotomy 2006 Opthamlomology History: Reports: Hx Contacts or Glasses, Hx Vision Problem Comment Only: Other Sensory Impairments - R & L laser YAG capsulotomy 2006 Neurological History: Reports: Hx Developmental Delay, Other Neuro Impairments/ Disorders - ADD, OCD, Anxiety Denies: Hx Dementia, Hx Migraine, Hx Seizures, Hx Transient Ischemic Attacks (TIA) Psychiatric History: Reports: Hx Anxiety, Other Psychiatric Issues/Disorders - ADD, OCD Denies: Hx Depression, Hx Schizophrenia, Hx Bipolar Disorder - Cancer History Hx Chemotherapy: No Hx Radiation Therapy: No - Surgical History Surgery Procedure, Year, and Place: 2006 R&L laser YAG capsulotomy. moles removed - Immunization History Date of Tetanus Vaccine: 04/04/2010 Date of Influenza Vaccine: 08/31/13 Infectious Disease History: Reports: Hx of Known/Suspected MRSA Denies: Hx Clostridium Difficile, Hx Hepatitis, Hx Human Immunodeficiency Virus (HIV), Hx Shingles, Hx Tuberculosis, Hx Known/Suspected VRE, Hx Known/ Suspected VRSA, History Other Infectious Disease, Traveled Outside the in Last 30 Days - Family History Known Family History: Positive: Other - neg Breast CA - Social History Alcohol Use: None Hx Substance Use: No Substance Use Type: Reports: None Hx Tobacco Use: No Smoking Status (MU): Never Smoked Tobacco Review of Systems Positive: Other - POS: decreased appetite Eyes: Negative ENT: Negative Cardiovascular: Negative Respiratory: Negative Positive: Abdominal Pain - R-sided, Vomiting, Nausea Genitourinary: Negative Musculoskeletal: Negative Skin: Negative Neurological: Negative Psychological: Normal All Other Systems Reviewed And Are Negative: Yes Physical Exam Triage Information Reviewed: Yes Vital Signs On Initial Exam: Initial Vitals BP 117/52 05/21/17 11:09 Vital Signs Reviewed: Yes Appearance: Positive: Well-Appearing, No Pain Distress Skin: Positive: Warm, Skin Color Reflects Adequate Perfusion, Dry Head/Face: Positive: Normal Head/Face Inspection Eyes: Positive: Normal ENT: Positive: Normal ENT inspection Neck: Positive: Supple, Nontender Respiratory/Lung Sounds: Positive: Clear to Auscultation, Breath Sounds Present Cardiovascular: Positive: RRR Abdomen Description: Positive: Soft, Other: - POS: TTP RUQ, RLQ Bowel Sounds: Positive: Present Musculoskeletal: Positive: Normal Neurological: Positive: Normal, Sensory/Motor Intact, Alert, Oriented to Person Place, Time, CN Intact II-III Psychiatric: Positive: Normal, Affect/Mood Appropriate Diagnostics - Vital Signs Vital Signs Temp Pulse Resp BP Pulse Ox 05/21/17 14:13 61 12 100/43 93 05/21/17 14:00 66 15 94 05/21/17 13:30 66 20 111/61 97 05/21/17 13:00 82 21 121/100 97 05/21/17 12:30 74 18 120/87 95 05/21/17 12:01 68 22 135/94 97 05/21/17 12:00 73 23 96 05/21/17 11:30 76 23 127/70 96 05/21/17 11:11 98.2 F 73 23 117/52 97 05/21/17 11:09 117/52 - Laboratory Lab Results: Lab Results 05/21/17 05/21/17 05/21/17 Range/Units 12:35 12:35 12:35 WBC 7.9 (3.5-10.8) 10^3/ul RBC 3.76 L (4.0-5.4) 10^6/ul Hgb 10.9 L (12.0-16.0) g/dl Hct 33 L (35-47) % MCV 89 (80-97) fL MCH 29 (27-31) pg MCHC 33 (31-36) g/dl RDW 17 H (10.5-15) % Plt Count 141 L (150-450) 10^3/ul MPV 10 (7.4-10.4) um3 Neut % (Auto) 77.2 (38-83) % Lymph % (Auto) 12.1 L (25-47) % [place] % (Auto) 7.0 (1-9) % Eos % (Auto) 3.1 (0-6) % Baso % (Auto) 0.6 (0-2) % Absolute Neuts (auto) 6.1 (1.5-7.7) 10^3/ul Absolute Lymphs (auto) 1.0 (1.0-4.8) 10^3/ul Absolute Monos (auto) 0.5 (0-0.8) 10^3/ul Absolute Eos (auto) 0.2 (0-0.6) 10^3/ul Absolute Basos (auto) 0 (0-0.2) 10^3/ul Absolute Nucleated RBC 0 10^3/ul Nucleated RBC % 0 Sodium 136 (133-145) mmol/L Potassium 4.2 (3.5-5.0) mmol/L Chloride 107 (101-111) mmol/L Carbon Dioxide 23 (22-32) mmol/L Anion Gap 6 (2-11) mmol/L BUN 19 (6-24) mg/dL Creatinine 1.10 H (0.51-0.95) mg/dL Est GFR ( Amer) 60.6 (>60) Est GFR (Non-Af Amer) 47.1 (>60) BUN/Creatinine Ratio 17.3 (8-20) Glucose 124 H (70-100) mg/dL Lactic Acid 0.9 (0.5-2.0) mmol/L Calcium 9.1 (8.6-10.3) mg/dL Total Bilirubin 0.50 (0.2-1.0) mg/dL AST 30 (13-39) U/L ALT 32 (7-52) U/L Alkaline Phosphatase 118 H (34-104) U/L C-Reactive Protein 32.30 H (< 5.00) mg/L Total Protein 6.2 L (6.4-8.9) g/dL Albumin 3.5 (3.2-5.2) g/dL Globulin 2.7 (2-4) g/dL Albumin/Globulin Ratio 1.3 (1-3) Lipase 53 (11.0-82.0) U/L Result Diagrams: 05/21/17 12:35 05/21/17 12:35 Lab Statement: Any lab studies that have been ordered have been reviewed, and results considered in the medical decision making process. - EKG 1156 Cardiac Rate: NL - 66 bpm EKG Rhythm: Sinus Rhythm EKG Interpretation: No STEMI. Sinus Rhythm Re-Evaluation - Re-Evaluation First Eval Re-Evaluation Time: 13:53 Change: Unchanged Abdominal Pain Fem Course/Dx - Course Course Of Treatment: Lyn did well here and was stable on vitals and not in any obvious pain. She slept some. HEr W/U was negative for acute finding. - Diagnoses Provider Diagnoses: Abdominal pain Discharge - Discharge Plan Condition: Stable Disposition: HOME Patient Education Materials: Abdominal Pain (ED) Referrals: Marge Schaefer MD [Primary Care Provider] - 3 Days Additional Instructions: No medication changes. The documentation as recorded by the Rome landry Thomas accurately reflects the service I personally performed and the decisions made by Vipul acevedo Richard L, MD.
== END 2017-05-21 14:43 | disposition home or self-care (01) ==
LOC: ED 10:58
DX: R10.9 Unspecified abdominal pain (principal); I10 Essential (primary) hypertension; E78.00 Pure hypercholesterolemia, unspecified; Z79.01 Long term (current) use of anticoagulants; E03.9 Hypothyroidism, unspecified; Z85.07 Personal history of malignant neoplasm of pancreas
CPT/HCPCS: 36415; 80053; 83605; 83690; 85025; 86140; 93005; 99283

== ENCOUNTER 2017-06-04 12:41 | Inpatient (IN) | payer MEDICARE, MEDICAID ==
[2017-06-04] MEDS ORDERED: Ondansetron INJ* 2 MG/ML VIAL IV ONE (14:48)
[2017-06-04] MEDS ORDERED: NS 0.9% 1000 ML* 1,000 ML IV ONE (14:48)
[2017-06-04] MEDS ORDERED: HYDROmorphone* 1 MG/ML 1 ML SYR IV ONE (14:48)
--- NOTE | 2017-06-04 15:47 | RAD ---
HISTORY: Chest pain COMPARISONS: August 01, 2015, CT dated April 30, 2017 VIEWS:1: Single frontal portable view of the chest at 2:56 PM FINDINGS: LINES AND TUBES: None. CARDIOMEDIASTINAL SILHOUETTE: The cardiac silhouette is enlarged. The cardiomediastinal silhouette is otherwise normal for portable technique. The opacification of the right lung base appears to correspond to prominent pericardial fat pad on previous CT and is stable. PLEURA: The costophrenic angles are sharp. No pleural abnormalities are noted. LUNG PARENCHYMA: The lungs are clear. ABDOMEN: The upper abdomen is clear. There is no subphrenic gas. BONES AND SOFT TISSUES: Degenerative changes are noted of the shoulders IMPRESSION: STABLE CARDIOMEGALY.
[2017-06-04 16:34] LABS: Hematocrit 32 % (35-47); Hemoglobin 10.5 g/dl (12.0-16.0); Mean Corpuscular HGB Conc 33 g/dl (31-36); Mean Corpuscular Hemoglobin 29 pg (27-31); Mean Corpuscular Volume 88 fL (80-97); Mean Platelet Volume 10 um3 (7.4-10.4); Red Blood Count 3.67 10^6/ul (4.0-5.4); Red Cell Distribution Width 16 % (10.5-15); White Blood Count 7.5 10^3/ul (3.5-10.8)
[2017-06-04 16:49] LABS: Albumin 3.4 g/dL (3.2-5.2); BUN/Creatinine Ratio 15.7 (8-20); C Reactive Protein 23.79 mg/L (< 5.00); Calcium 9.1 mg/dL (8.6-10.3); EGFR African American 54.3 (>60); EGFR Non-African American 42.2 (>60); Globulin 2.6 g/dL (2-4); Potassium 3.8 mmol/L (3.5-5.0); Total Bilirubin 0.5 mg/dL (0.2-1.0)
[2017-06-04 16:57] LABS: Troponin I 0.13 ng/mL (<0.04)
--- NOTE | 2017-06-04 22:38 | ED ---
Soledad Miles Seung-Jae, scribed for Joel Matthew MD on 06/04/17 at 1441 . Abdominal Pain/Female - HPI Summary HPI Summary: Pt is an 87 y/o F who presents to ED c/o abd pain. Pain began this morning and has been constant since onset. Pain is in the epigastric region and is currently severe, ranked 8/10. Additionally c/o vomiting and decreased PO intake. Sx aggravated by food or drink, alleviated by nothing. Denies currently being nauseated. Nurse from her long-term reports that ehas lost 20 pounds in the last few weeks. Dx in 04/2017 with pancreatic mass by Dr. Cruz, who she last saw on 05/17. - History of Current Complaint Chief Complaint: EDAbdPain Stated Complaint: ABD PAIN/WEIGHT LOSS/UNABLE TO EAT/DRINK Time Seen by Provider: 06/04/17 14:37 Hx Obtained From: Patient Hx Last Menstrual Period: n/a Onset/Duration: Lasting Days, Still Present Timing: Constant Severity Currently: Severe Pain Intensity: 8 Pain Scale Used: 0-10 Numeric Location: Epigastric Radiates: No Aggravating Factor(s): Food, Other: - Water Alleviating Factor(s): Nothing Associated Signs and Symptoms: Positive: Vomiting, Other: - Decreased PO intake. Negative: Nausea Allergies/Adverse Reactions: Allergies Allergy/AdvReac Type Severity Reaction Status Date / Time Penicillins Allergy Intermediate Unknown Verified 04/02/16 11:12 Reaction Details seasonal allergies Allergy Eyes Uncoded 04/02/16 11:12 Itchy/Swollen/Red/Watery PMH/Surg Hx/FS Hx/Imm Hx Endocrine/Hematology History: Reports: Hx Anticoagulant Therapy - ASA, Hx Thyroid Disease - HYPO Denies: Hx Diabetes Cardiovascular History: Reports: Hx Angina, Hx Hypercholesterolemia, Hx Hypertension, Hx Syncope, Other Cardiovascular Problems/Disorders - IRREGULAR HEARTBEAT Denies: Hx Congestive Heart Failure, Hx Deep Vein Thrombosis, Hx Myocardial Infarction, Hx Pacemaker/ICD Respiratory History: Denies: Hx Asthma, Hx Chronic Obstructive Pulmonary Disease (COPD), Hx Lung Cancer GI History: Denies: Hx Gall Bladder Disease, Hx Gastrointestinal Bleed, Hx Ulcer, Hx Urosepsis Comment Only: Other GI Disorders - esophageal stricture History: Reports: Other Problems/Disorders - Stress incontinence Denies: Hx Kidney Stones, Hx Renal Disease Musculoskeletal History: Reports: Hx Arthritis - osteoarthritis, Other Musculoskeletal History - lt knee degenerative joint disease, osteoarthritis Sensory History: Reports: Hx Contacts or Glasses, Hx Vision Problem, Hx Hearing Aid, Hx Hearing Problem Comment Only: Other Sensory Impairments - R & L laser YAG capsulotomy 2006 Opthamlomology History: Reports: Hx Contacts or Glasses, Hx Vision Problem Comment Only: Other Sensory Impairments - R & L laser YAG capsulotomy 2006 Neurological History: Reports: Hx Developmental Delay, Other Neuro Impairments/ Disorders - ADD, OCD, Anxiety Denies: Hx Dementia, Hx Migraine, Hx Seizures, Hx Transient Ischemic Attacks (TIA) Psychiatric History: Reports: Hx Anxiety, Other Psychiatric Issues/Disorders - ADD, OCD Denies: Hx Depression, Hx Schizophrenia, Hx Bipolar Disorder - Cancer History Hx Chemotherapy: No Hx Radiation Therapy: No - Surgical History Surgery Procedure, Year, and Place: 2006 R&L laser YAG capsulotomy. moles removed - Immunization History Date of Tetanus Vaccine: 04/04/2010 Date of Influenza Vaccine: 08/31/13 Infectious Disease History: No Infectious Disease History: Reports: Hx of Known/Suspected MRSA Denies: Hx Clostridium Difficile, Hx Hepatitis, Hx Human Immunodeficiency Virus (HIV), Hx Shingles, Hx Tuberculosis, Hx Known/Suspected VRE, Hx Known/ Suspected VRSA, History Other Infectious Disease, Traveled Outside the [place] in Last 30 Days - Family History Known Family History: Positive: Other - neg Breast CA - Social History Lives: [facility] Alcohol Use: None Hx Substance Use: No Substance Use Type: Reports: None Hx Tobacco Use: No Smoking Status (MU): Never Smoked Tobacco Review of Systems Negative: Fever Positive: Abdominal Pain, Vomiting, Other - Decreased PO intake. Negative: Nausea All Other Systems Reviewed And Are Negative: Yes Physical Exam Triage Information Reviewed: Yes Vital Signs On Initial Exam: Initial Vitals Temp Pulse Resp BP Pulse Ox 98.2 F 89 23 117/66 96 06/04/17 13:13 06/04/17 13:13 06/04/17 13:13 06/04/17 13:13 06/04/17 13:13 Vital Signs Reviewed: Yes Appearance: Positive: Well-Appearing, Pain Distress - Obvious distress Skin: Positive: Warm, Skin Color Reflects Adequate Perfusion, Dry. Negative: Jaundiced Head/Face: Positive: Normal Head/Face Inspection Eyes: Positive: Normal ENT: Positive: Normal ENT inspection Neck: Positive: Supple, Nontender Respiratory/Lung Sounds: Positive: Clear to Auscultation, Breath Sounds Present Cardiovascular: Positive: RRR Abdomen Description: Positive: Soft, Other: - Extremely tender in the epigastrum Bowel Sounds: Positive: Present Musculoskeletal: Positive: Normal Neurological: Positive: Normal Psychiatric: Positive: Normal Diagnostics - Vital Signs Vital Signs Temp Pulse Resp BP Pulse Ox 06/04/17 14:26 98.6 F 73 16 98/58 97 06/04/17 13:13 98.2 F 89 23 117/66 96 - Laboratory Lab Results: Lab Results 06/04/17 06/04/17 06/04/17 Range/Units 16:27 16:27 16:27 WBC 7.5 (3.5-10.8) 10^3/ul RBC 3.67 L (4.0-5.4) 10^6/ul Hgb 10.5 L (12.0-16.0) g/dl Hct 32 L (35-47) % MCV 88 (80-97) fL MCH 29 (27-31) pg MCHC 33 (31-36) g/dl RDW 16 H (10.5-15) % Plt Count 148 L (150-450) 10^3/ul MPV 10 (7.4-10.4) um3 Neut % (Auto) 65.2 (38-83) % Lymph % (Auto) 16.1 L (25-47) % [place] % (Auto) 8.7 (1-9) % Eos % (Auto) 9.3 H (0-6) % Baso % (Auto) 0.7 (0-2) % Absolute Neuts (auto) 4.9 (1.5-7.7) 10^3/ul Absolute Lymphs (auto) 1.2 (1.0-4.8) 10^3/ul Absolute Monos (auto) 0.7 (0-0.8) 10^3/ul Absolute Eos (auto) 0.7 H (0-0.6) 10^3/ul Absolute Basos (auto) 0 (0-0.2) 10^3/ul Absolute Nucleated RBC 0 10^3/ul Nucleated RBC % 0 Sodium 137 (133-145) mmol/L Potassium 3.8 (3.5-5.0) mmol/L Chloride 105 (101-111) mmol/L Carbon Dioxide 24 (22-32) mmol/L Anion Gap 8 (2-11) mmol/L BUN 19 (6-24) mg/dL Creatinine 1.21 H (0.51-0.95) mg/dL Est GFR ( Amer) 54.3 (>60) Est GFR (Non-Af Amer) 42.2 (>60) BUN/Creatinine Ratio 15.7 (8-20) Glucose 100 (70-100) mg/dL Lactic Acid 1.0 (0.5-2.0) mmol/L Calcium 9.1 (8.6-10.3) mg/dL Total Bilirubin 0.50 (0.2-1.0) mg/dL AST 22 (13-39) U/L ALT 23 (7-52) U/L Alkaline Phosphatase 106 H (34-104) U/L Troponin I 0.13 H* (<0.04) ng/mL C-Reactive Protein 23.79 H (< 5.00) mg/L Total Protein 6.0 L (6.4-8.9) g/dL Albumin 3.4 (3.2-5.2) g/dL Globulin 2.6 (2-4) g/dL Albumin/Globulin Ratio 1.3 (1-3) Lipase 40 (11.0-82.0) U/L Result Diagrams: 06/04/17 16:27 06/04/17 16:27 Lab Statement: Any lab studies that have been ordered have been reviewed, and results considered in the medical decision making process. - Radiology CXR Xray Interpretation: No Acute Changes - STABLE CARDIOMEGALY Radiology Interpretation Completed By: Radiologist - EKG 17:47 Cardiac Rate: Bradycardia - 57 bpm EKG Rhythm: Sinus Bradycardia Ectopy: PVCs Re-Evaluation - Re-Evaluation First Eval Re-Evaluation Time: 17:52 Change: Improved Comment: Feeling better Abdominal Pain Fem Course/Dx - Course Course Of Treatment: Ms. Rogers has not been able to keep any food down for a few days and her epigastric pain has worsened. She was treated with pain medications and fluids here and unexpectedly her trop returned elevated. Dr. Cruz has seen her and she will be admitted. - Diagnoses Provider Diagnoses: Epigastric abdominal pain, Elevated troponin I measurement - Provider Notifications Discussed Care Of Patient With: Jaime Cruz Time Discussed With Above Provider: 18:00 Instructed by Provider To: MD Will See In ED Discharge - Discharge Plan Condition: Stable Disposition: ADMITTED TO [facility] documentation as recorded by the Soledad landry Seung-Jae accurately reflects the service I personally performed and the decisions made by me, Joel Matthew MD.
[2017-06-05] MEDS: NS 0.9% 1000 ML* 1,000 ML IV SCH ×3 (00:13→21:01)
--- NOTE | 2017-06-05 00:49 | HP ---
CC: Dr. Marge Schaefer; Dr. Hayley Nassar * ADMISSION HISTORY AND PHYSICAL: DATE OF ADMISSION: 06/04/17 REASON FOR ADMISSION: Worsening abdominal pain, nausea, decreased appetite, and weight loss in the setting of a pancreatic mass. HISTORY OF PRESENT ILLNESS: Lyn oRgers is an 87-year-old female with a history of [id number] intellectual disability and developmental delays. She has lived at [facility] in [place] for most of her life and more recently lived at [facility] here in [place]. She is currently age 87 and is functional enough to go to [facility] 3 days per week until very recently. She also has an underlying history of ADD and OCD. She developed decreasing appetite over the month of March and 6 to 8-pound weight loss over that period of time. She did not complain of any abdominal pain, nausea, and vomiting until just before her admission of 04/30/17. She had an episode of what seemed to be gastroenteritis along with other individuals a couple of weeks before the admission. On the morning of admission on 04/30/17, she woke up and developed right upper quadrant abdominal pain. In the emergency room, a 3 cm mass was noted in the head of the pancreas along with pancreatic ductal dilatation. Small peripancreatic lymph nodes were also noted; although they were prominent, they were still of normal size. There were no hepatic lesions. The liver did appear somewhat cirrhotic. These were changes since her previous CT scan of 2013. She was hospitalized for only a short period of time, symptoms improved quickly and she was therefore discharged back to her group residence. She was seen back in the office on 05/17/17. At that time, she reported no further abdominal pain or any significant worsening of nausea and vomiting since discharge, had minimal symptoms and seemed to be back to baseline. At the time she was seen, she was accompanied by her [id number], who she signed and informed to have become her healthcare proxy. Several individuals from [facility] were also there to advocate for whatever was in her best interest. It was explained at that time this was almost certainly a pancreatic cancer, although at that time not causing any obstruction or much in the way of symptoms. If she were to become symptomatic, ERCP for diagnosis and intentional replacement of stent to prevent hepatic failure and to relieve symptoms could be considered. Laboratory studies revealed normal liver function tests with a CA19-9 that was stable at 480. Shortly after that visit, the patient started having increasing symptoms, was seen in the emergency room on 05/21/17 with increasing abdominal pain. She is accompanied to the emergency room today by a nurse who reports that she has had almost nothing to eat or much p.o. intake in the past 2 weeks. Over this period of time, she has had a 20-pound weight loss. She has developed pain in the abdomen along with episodes of nausea, which can be quite severe. She still , however, is moving her bowels. The patient does report that her mouth is quite dry. She denies being dizzy or lightheaded. She denies any recent fevers , sweats, chills, or other signs of infection. PAST MEDICAL HISTORY: 1. OCD and ADD. 2. Hypertension. 3. History of esophageal stricture. 4. Anxiety. 5. GERD with minimal esophageal ring dilated 7 to 8 years ago. 6. Hypothyroidism. 7. Hyperlipidemia. 8. Arthritis. PAST SURGICAL HISTORY: No past surgeries. MEDICATIONS: At the time of admission includes: 1. Amlodipine 10 mg daily. 2. Zantac 150 mg daily as needed. 3. Ditropan 5 mg daily. 4. Prilosec 20 mg daily. 5. Lisinopril 20 mg daily. 6. Synthroid 75 mcg daily. 7. Fexofenadine 180 mg daily. 8. Colace 100 mg daily. 9. Lipitor 20 mg daily. 10. Aspirin 81 mg daily. 11. Tylenol p.r.n. 12. Calcium with vitamin D. 13. More recently, she has also had Zofran 4 mg q.6h. p.r.n. nausea. 14. Oxycodone 5 mg q.4-6h. p.r.n. pain. SOCIAL HISTORY: She lived in [facility] in the distant past in [place], more recently a assisted for the past several decades. Her sister -in- law, Kaci Rojas, is her healthcare proxy. She has never been a drinker or smoker. REVIEW OF SYSTEMS: As discussed above. PHYSICAL EXAMINATION GENERAL: An 87-year-old female in no acute distress. VITAL SIGNS: Blood pressure 107/65, pulse 71, afebrile. HEENT: PERRL. EOMI. No scleral icterus. Quite dry mucous membranes. No palpable cervical, supraclavicular, or axillary adenopathy. LUNGS: Clear. HEART: Regular rate and rhythm without murmurs, rubs, or gallops. ABDOMEN: Decreased bowel sounds. Tenderness in the right upper quadrant and in the epigastrium. No guarding. No rebound. BACK: No CVA or spinal tenderness. EXTREMITIES: No edema. NEUROLOGIC: The patient is alert and oriented to person and to hospitalization , could name her healthcare proxy. LABORATORY STUDIES: CBC with a white count of 7500, hematocrit 32, hemoglobin 10.5, which are in line with how her labs have been over the past month. Platelet count 148,000. Chemistry studies are sodium 137, potassium 3.8, chloride 105, bicarb 24. BUN 19, creatinine 1.21, glucose of 100. LFTs are essentially normal with alk phos minimally elevated at 106. Normal bilirubin, AST, and ALT. CA19-9 three weeks ago was 478. IMPRESSION: Pancreatic mass and highly likely that she has a pancreatic carcinoma. She had presented to the hospital on 04/30/17 with abdominal pain, which quickly resolved. She now has presented with worsened abdominal pain along with nausea, decreased appetite, decreased oral intake, and marked weight loss. It is likely that her symptoms relate to worsening of her pancreatic cancer and also elevated LFTs. It is very concerning that her symptoms are rapid and progressive from [address] scan will be obtained in the morning after she has been hydrated overnight. We will see whether or not the tumor has progressed. A consult will also be obtained with both palliative care services and with Dr. Ruelas. We will see whether or not there may be an opportunity to relieve her symptoms with an ERCP and a stent. She has a healthcare proxy in place, who is her [id number]. At the present time, the patient still does not have a do not resuscitate order, although she seemed willing to accept this as a possibility at the time of her last office visit on 05/17/17. Due to the amount of pain, she was seen at the emergency room tonight. This was further discussed with her. She will receive oxycodone 5 mg p.r.n. pain, and if inadequate, Dilaudid 1 mg IV q.4h. p.r.n. pain, Zofran 4 mg q.6h. p.r.n. nausea. She will receive DVT prophylaxis. [id number]/[facility] #: [id number] KIRILL
[2017-06-05] MEDS: oxyCODONE TAB* 5 MG TAB PO PRN ×4 (06:09→21:01)
[2017-06-05] MEDS: Levothyroxine TAB* 75 MCG TAB PO SCH (06:10)
[2017-06-05] MEDS ORDERED: Iodixanol* (CONTRAST) 320 MG/ML 100 ML SDV IV ONE (07:41)
[2017-06-05 08:54] LABS: Hematocrit 30 % (35-47); Hemoglobin 9.8 g/dl (12.0-16.0); Mean Corpuscular HGB Conc 32 g/dl (31-36); Mean Corpuscular Hemoglobin 29 pg (27-31); Mean Corpuscular Volume 89 fL (80-97); Mean Platelet Volume 11 um3 (7.4-10.4); Red Blood Count 3.41 10^6/ul (4.0-5.4); Red Cell Distribution Width 16 % (10.5-15); White Blood Count 8.2 10^3/ul (3.5-10.8)
[2017-06-05 08:55] LABS: Add Diff/Slide Review? Slide Review Added; Comments Flag Yes
[2017-06-05 09:09] LABS: BUN/Creatinine Ratio 17.1 (8-20); Calcium 8.6 mg/dL (8.6-10.3); EGFR African American 63.9 (>60); EGFR Non-African American 49.7 (>60); Potassium 3.9 mmol/L (3.5-5.0)
[2017-06-05] MEDS: HYDROmorphone* 1 MG/ML 1 ML SYR IV SLOW PU PRN (09:31)
--- NOTE | 2017-06-05 09:31 | RAD ---
HISTORY: Follow-up pain, gastric pain COMPARISONS: CT of the chest dated June 10, 2014, CT of abdomen posterior to April 30, 2017 TECHNIQUE: Multiple contiguous axial CT scans were obtained of the chest, abdomen, and pelvis after the administration of intravenous contrast. Coronal and sagittal multiplanar reformations are submitted for review.. Oral contrast was administered. Delayed images were obtained through the abdomen and pelvis. FINDINGS: CHEST NECK AND THYROID: The lower neck and thyroid are unremarkable. CHEST WALL: There is no lower cervical, axillary, or supraclavicular lymphadenopathy by size criteria. HEART AND PERICARDIUM: The heart is unremarkable. There is a prominent pericardial fat pad on the right AORTA AND PULMONARY VASCULATURE: The aorta and pulmonary vasculature are normal. MEDIASTINUM: There is no mediastinal lymphadenopathy by size criteria. NICOLAS: There is no hilar lymphadenopathy by size criteria. AIRWAY AND ESOPHAGUS: The airway is unremarkable, without endobronchial filling defect. The esophagus is grossly normal. LUNG PARENCHYMA: There is calcified granuloma of the right lower lobe PLEURA: No pleural abnormalities are noted. BONES AND SOFT TISSUES: No bone or soft tissue abnormalities are noted. ABDOMEN/PELVIS: LIVER: The liver is normal in shape, size, contour, and attenuation. There is cavernous transformation of the portal vein BILE DUCTS: There is no intrahepatic or extrahepatic biliary dilatation. GALLBLADDER: The gallbladder is normal, without pericholecystic inflammatory change. PANCREAS: Again noted is essentially necrotic mass of the pancreatic head. This is increased in size from April 30, 2017, currently measuring 4.6 cm. There is associated pancreatic ductal dilatation with atrophy of the pancreas SPLEEN: Normal in size and appearance. UPPER GI TRACT: Evaluation of the gastrointestinal tract is limited by incomplete gastric distention. There is a small hiatal hernia SMALL BOWEL \T\ MESENTERY: The small bowel is normal in contour, course, and caliber. There is no obstruction or dilatation. COLON: There are multiple diverticula of the distal colon. There is no pericolonic inflammatory change. ADRENALS: Normal bilaterally. KIDNEYS: The kidneys are normal in shape, size, contour, and axis. There is no hydronephrosis or nephrolithiasis. BLADDER: The bladder is smooth in contour. PELVIC ORGANS: There is a calcified uterine fibroid. AORTA: There is calcific atherosclerotic disease of the abdominal aorta and its branches, without aneurysmal dilatation IVC: Unremarkable LYMPH NODES: There is no lymphadenopathy by size criteria. ABDOMINAL WALL: There is no evidence for abdominal wall hernia. BONES: Degenerative changes are noted OTHER: There is trace perihepatic ascites IMPRESSION: 1. INTERVAL PROGRESSION OF A NECROTIC MASS OF THE PANCREATIC HEAD WITH PANCREATIC DUCTAL DILATATION. 2. CAVERNOUS TRANSFORMATION OF THE PORTAL VEIN. 3. TRACE PERIHEPATIC ASCITES. 4. ATHEROSCLEROSIS. 5. DIVERTICULOSIS. 6. NO ACUTE CT PATHOLOGY OF THE CHEST
[2017-06-05] MEDS: Ondansetron ODT TAB* 4 MG SL PRN (09:32)
[2017-06-05] MEDS ORDERED: Polyethylene Glycol 3350 BTL* 238 GM BTL PO PRN (09:37)
[2017-06-05] MEDS: amLODIPine TAB* 5 MG PO SCH (10:20)
[2017-06-05] MEDS: Atorvastatin* 20 MG TAB PO SCH (10:23)
[2017-06-05] MEDS: Oxybutynin XL TAB* 5 MG PO SCH (10:23)
[2017-06-05] MEDS: Omeprazole CAP* 20 MG PO SCH (10:23)
[2017-06-05] MEDS: Lisinopril TAB* 10 MG PO SCH (10:25)
[2017-06-05] MEDS: Aspirin EC Low Dose* 81 MG TAB.EC PO SCH (10:25)
[2017-06-05] MEDS ORDERED: Polyethylene Glycol 3350* 17 GM PACKET PO PRN (10:54)
[2017-06-05 21:31] LABS: Urine Bacteria Absent (Absent); Urine Bilirubin Negative (Negative); Urine Glucose Negative (Negative); Urine Nitrite Negative (Negative)
--- NOTE | 2017-06-05 23:25 | CONS ---
CC: Dr. Cruz * CONSULTATION REPORT: DATE OF CONSULTATION: 06/05/17 REASON FOR CONSULTATION: Pancreatic tumor, progressive nausea, weight loss, and abdominal pain. HISTORY OF PRESENT ILLNESS: Ms. Rogers is an 87-year-old woman with developmental delays, currently a resident at a skilled nursing, who initially presented a couple of months ago with decreased appetite and weight loss. She was initially thought to have gastroenteritis; however, developed abdominal pain in April of 2017 where CAT scan of the abdomen demonstrated a 3 cm pancreatic mass with some mild dilation of the pancreatic duct. Small peripancreatic lymph nodes were also noted. She had an elevated CA-19 of 480 and a presumptive diagnosis of pancreatic cancer was made. She recovered to the point of being able to be discharged; however, in the last several weeks, has had worsening anorexia and abdominal pain in the upper abdomen. Her caregiver, who was with her today, who I spoke with believes she has lost about 20 pounds in the last month. There has been nausea with occasional emesis. For this reason, she was admitted. Admission data was notable for a total bilirubin of 0.5 and alkaline phosphatase of 106, lipase of 40, hemoglobin of 9.8. Imaging was carried out, which included an abdominal CT scan, which I did review showing enlargement of the pancreatic lesion to approximately 4.6 cm with some mild pancreatic ductal dilatation, no biliary dilation. The small bowel did not seem to be obstructed by the lesion. The patient currently is medicated from the pain medicines and is lying in bed appearing relatively comfortable. PAST MEDICAL HISTORY: Includes developmental disorder, ADD, hypertension, GERD with esophageal stricture, hypothyroidism, hyperlipidemia. ADMISSION MEDICINES: 1. Amlodipine. 2. Zantac. 3. Ditropan. 4. Prilosec. 5. Lisinopril. 6. Synthroid. 7. Fexofenadine. 8. Colace. 9. Lipitor. 10. Baby aspirin. REVIEW OF SYSTEMS: There is no report of jaundice, fevers, back pain, GI bleeding, ecchymosis. PHYSICAL EXAMINATION: General: On physical exam, she is sleepy, somewhat pale woman, arousable, describing abdominal pain when aroused, but in no acute distress. Vital Signs: Temperature is 98 degrees, blood pressure is 115/55, heart rate is 72 and regular. Skin turgor is normal. She is anicteric. Cardiac Exam: Reveals a regular rhythm without murmur. Abdomen: Obese and soft. There is tenderness in the epigastrium, but no obvious mass. No hepatomegaly or palpable gallbladder. No lower abdominal pain and bowel sounds are hypoactive, but present. LABORATORY DATA: Additional data include a hemoglobin of 9.8, white count of 8.2. ALT of 23, AST of 22. IMPRESSION: An 87-year-old woman with highly likely pancreatic cancer, presenting with worsening local symptoms of abdominal pain, weight loss, and nausea. Due to her other comorbidity and age, surgical approaches were not entertained, certainly that is a very reasonable approach. We were asked to consult with regard to help with palliative concerns regarding her pain and nausea. Specifically, our group was asked to consider ERCP with stenting. In the absence of obstructive jaundice and a normal bilirubin, I do not see any role that ERCP and stenting would play with improvement in symptoms. Beyond hospice, which has already been consulted and their input will certainly be useful, other local treatment such as celiac nerve blocks may be considered. If the patient was to experience obstructive jaundice, then certainly ERCP with biliary stent would be plausible. [id number]/CPS #: [id number] KIRILL
[2017-06-06] MEDS: oxyCODONE TAB* 5 MG TAB PO PRN ×2 (02:10→08:37)
[2017-06-06] MEDS: Ondansetron ODT TAB* 4 MG SL PRN (04:08)
[2017-06-06] MEDS: HYDROmorphone* 1 MG/ML 1 ML SYR IV SLOW PU PRN ×2 (04:13→12:22)
[2017-06-06] MEDS: Levothyroxine TAB* 75 MCG TAB PO SCH (06:21)
[2017-06-06] MEDS: Lisinopril TAB* 10 MG PO SCH (08:25)
[2017-06-06] MEDS: Atorvastatin* 20 MG TAB PO SCH (08:25)
[2017-06-06] MEDS: Oxybutynin XL TAB* 5 MG PO SCH (08:25)
[2017-06-06] MEDS: amLODIPine TAB* 5 MG PO SCH (08:25)
[2017-06-06] MEDS: Omeprazole CAP* 20 MG PO SCH (08:25)
[2017-06-06] MEDS: Aspirin EC Low Dose* 81 MG TAB.EC PO SCH (08:25)
[2017-06-06] MEDS ORDERED: LORazepam INJ* 2 MG/ML 1 ML VIAL IV PUSH PRN (10:43)
--- NOTE | 2017-06-06 10:43 | PN ---
Progress Note - Progress Note Date of Service: 06/06/17 SOAP: Subjective: []Nausea and vomiting today. Abdominal pain not controlled. Discussion with hearing healthcare practitioner. Family does not want intervention or aggressive care. Amlodipine Besylate (Norvasc Tab*) 10 mg PO DAILY [facility] Last Admin: 06/06/17 08:25 Dose: 10 mg Aspirin (Aspirin Ec Low Dose*) 81 mg PO DAILY [facility] Last Admin: 06/06/17 08:25 Dose: 81 mg Atorvastatin Calcium (Lipitor*) 20 mg PO DAILY [facility] Last Admin: 06/06/17 08:25 Dose: 20 mg Hydromorphone HCl (Dilaudid Iv*) 1 mg IV SLOW PU Q4H PRN PRN Reason: PAIN Last Admin: 06/06/17 04:13 Dose: 1 mg Sodium Chloride (Ns 0.9% 1000 Ml*) 1,000 mls @ 100 mls/hr IV PER RATE [facility] Last Admin: 06/05/17 21:01 Dose: 100 mls/hr Levothyroxine Sodium (Synthroid Tab*) 75 mcg PO 0600 [facility] Last Admin: 06/06/17 06:21 Dose: 75 mcg Lisinopril (Prinivil Tab*) 10 mg PO DAILY [facility] Last Admin: 06/06/17 08:25 Dose: 10 mg Omeprazole (Prilosec Cap*) 20 mg PO DAILY [facility] Last Admin: 06/06/17 08:25 Dose: 20 mg Ondansetron HCl (Zofran Odt Tab*) 4 mg SL Q6H PRN PRN Reason: NAUSEA/VOMITING Last Admin: 06/06/17 04:08 Dose: 4 mg Oxybutynin Chloride (Ditropan Xl Tab*) 5 mg PO DAILY [facility] Last Admin: 06/06/17 08:25 Dose: 5 mg Oxycodone HCl (Roxycodone Tab*) 5 mg PO Q4H PRN PRN Reason: PAIN Last Admin: 06/06/17 08:37 Dose: 5 mg Polyethylene Glycol/Electrolytes (Miralax*) 17 gm PO DAILY PRN PRN Reason: CONSTIPATION Objective: [] Vital Signs Temp Pulse Resp BP Pulse Ox 98.9 F 75 20 99/49 94 06/06/17 07:26 06/06/17 07:26 06/06/17 08:37 06/06/17 07:26 06/06/17 07:26 HEENT - pale CTA RRR S1S2 +BS, tender. cannot feel mass Ext w/o edema neuro - non focal, responding to questions. distress on exam. Assessment: []87 year old with presumed pancreatic cancer, refractory abdominal pain and nausea, no billary obstructive symptoms. Plan: []1. Pancreatic cancer. If stable it would still be helpful to have a biopsy and confirm diagnosis. Not required to transition to hospice. 2. Nausea. Scopalamine patch and IV ativan today and follow. Will review CT with radiology to determine if machanical cause of obstruction. 3. Pain. Morphine SR 15 bid and continue PRN. 4. Full code at this time, will need to discuss with proxy.
[2017-06-06] MEDS ORDERED: Scopolamine 1.5 mg* PATCH TRANSDERM SCH (11:00)
[2017-06-06] MEDS: Morphine TAB Extended Release (*) 15 MG TAB.ER PO SCH ×2 (11:36→22:56)
[2017-06-06] MEDS: NS 0.9% 1000 ML* 1,000 ML IV SCH (19:59)
[2017-06-07] MEDS: Levothyroxine TAB* 75 MCG TAB PO SCH (06:29)
[2017-06-07] MEDS: NS 0.9% 1000 ML* 1,000 ML IV SCH (06:29)
[2017-06-07] MEDS ORDERED: Prochlorperazine TAB* 10 MG PO PRN (09:34)
[2017-06-07] MEDS ORDERED: oxyCODONE TAB* 5 MG TAB PO PRN (10:05)
[2017-06-07] MEDS: Oxybutynin XL TAB* 5 MG PO SCH (10:07)
[2017-06-07] MEDS: Omeprazole CAP* 20 MG PO SCH (10:07)
[2017-06-07] MEDS: Aspirin EC Low Dose* 81 MG TAB.EC PO SCH (10:07)
[2017-06-07] MEDS: Ondansetron ODT TAB* 4 MG SL PRN ×2 (10:08→16:57)
[2017-06-07] MEDS: amLODIPine TAB* 5 MG PO SCH (10:35)
[2017-06-07] MEDS: Lisinopril TAB* 10 MG PO SCH (10:35)
[2017-06-07] MEDS: Atorvastatin* 20 MG TAB PO SCH (10:35)
[2017-06-07] MEDS ORDERED: Morphine TAB Extended Release (*) 15 MG TAB.ER PO SCH (11:00)
--- NOTE | 2017-06-07 12:36 | CONS ---
CC: Marge Schaefer MD; Jaime Cruz MD * PALLIATIVE CARE CONSULTATION: DATE OF CONSULT: 06/07/17 PRIMARY CARE PHYSICIAN: Marge Schaefer MD ONCOLOGIST: Jaime Cruz MD. REFERRING PHYSICIAN FOR CONSULTATION: Richard Man MD. HOSPITAL COURSE: This is an 87-year-old female with past medical history of moderate intellectual developmental disability who presents to the emergency room from the [facility] on 06/04/17 with worsening abdominal pain, nausea, decreased appetite and weight loss in the setting of pancreatic mass. The patient was admitted last month around April 30 with abdominal pain and nausea and was found to have a 3 cm pancreatic mass at that time. At that time, GI and Oncology were involved and their recommendation was to monitor her and follow up as an outpatient. The patient has progressed and had seems presumably that this is progression of her pancreatic cancer. No biopsy was done. On this admission, the patient is having significant weight loss with decreased appetite and nausea, vomiting, and abdominal pain. Her staff was not present with her on my encounter and she is unable to answer questions appropriately and is alert and oriented x1, but she is able to tell me that she was unable to eat her breakfast. GI was consulted during the admission to discuss evaluation for palliative stent. In the absence of hyperbilirubinemia, there seems to be no role for placing a stent. The plan is the patient is eligible for hospice due to her presumed diagnosis pancreatic cancer and is going to go back to the [facility] with hospice. Her [id number], Kaci Marrero is her healthcare proxy and does not want any aggressive measures taken. Otherwise review of system is limited due to the patient's intellectual developmental disability. PAST MEDICAL HISTORY: 1. Intellectual developmental disability, resides at [facility]. 2. OCD and ADD. 3. Hypertension. 4. History of esophageal stricture. 5. History of anxiety. 6. Hypertension. 7. History of GERD with minimal esophageal ring dilated approximately 7 to 8 years ago. 8. Hypothyroidism. 9. Hyperlipidemia. 10. Arthritis. 11. Presumed pancreatic cancer. MEDICATIONS: 1. Aspirin 81 mg daily. 2. Lorazepam 1 mg every 6 hours as needed. 3. Synthroid 75 mcg daily. 4. Morphine extended release 15 mg to p.o. q.8 hours. 5. Omeprazole 20 mg daily. 6. Zofran 4 mg sublingual q.6 hours as needed. 7. Oxybutynin 5 mg daily. 8. MiraLAX 17 g daily as needed. 9. Compazine 10 mg q.6 hours as needed. 10. Scopolamine patch as directed. 11. Oxycodone 10 mg every 4 hours as needed. 12. Amlodipine 10 mg daily. 13. Lisinopril 10 mg daily. ALLERGIES: PENICILLIN. FAMILY HISTORY: Unknown. SOCIAL HISTORY: The patient as mentioned resides at [facility]. Her sister- in-law, Kaci Marrero is her health care proxy. At baseline she is ambulating with a walker; however, on my encounter the patient was very unsteady on feet and limited ability to ambulate with walker. She was participating in a [employer] program 3 days a week. No history of smoking, alcohol, or illicit drug use. Of note, Kaci Marrero's phone number is [phone]. Man, the patient MOLST form has been completed and is DNR/DNI. It is not in the chart at this time. REVIEW OF SYSTEMS: Limited due to the patient's developmental disability. PHYSICAL EXAM: Vital Signs: Temp 98.3, pulse rate 62, respiratory rate 16, oxygen saturation 95% on room air, blood pressure 99/47. General: The patient is in no acute distress, resting comfortably with her plastic doll at the bedside. HEENT: Head is normocephalic. Pupils are equal and reactive. Anicteric. Oropharynx; mucous membranes are moist. Neck: Supple. No lymphadenopathy. Cardiac: Regular rate and rhythm. Soft systolic murmur throughout. Respiratory: Diminished breath sounds. No wheezes, rhonchi, or rales. Abdomen: Hypoactive bowel sounds, soft, diffuse tenderness, and some rebound. Extremities: No clubbing, cyanosis, edema. +1 DP. Neurologic: The patient is alert and oriented x1. Oriented to self only. Neurologic, no gross focal neurologic deficits. DIAGNOSTIC STUDIES/LAB DATA: From 06/05/17, white count 8.2, hemoglobin 9.8, hematocrit 30, and platelets 125. INR is 1. Sodium 134, potassium 3.9, chloride 106, bicarbonate 19, BUN 18, creatinine 1.05. CA19-9 is 304. RADIOGRAPHIC IMAGING: CT of the chest, abdomen, and pelvis shows interval progression of necrotic mass of the pancreatic head with pancreatic ductal dilatation, cavernous transformation of the portal vein, trace perihepatic ascites, atherosclerosis, diverticulosis. No acute pathology of the chest. ASSESSMENT: This is an 87-year-old female with a presumed diagnosis of pancreatic cancer, who returned for the second time this month with abdominal pain, now with nausea , vomiting, and weight loss. It was discussed with the [id number], the healthcare proxy that the patient was to enroll in hospice and she is eligible for this for her presumed pancreatic cancer diagnosis and the [id number] does not want any aggressive measures taken at this time. The goal is for comfort. I did add Compazine to her medication regimen for antinausea in addition to her Zofran and her scopolamine patch. She is on lisinopril and amlodipine and her blood pressure have been soft throughout her admission. I discontinued her lisinopril and lowered her amlodipine to 5 mg. I would monitor this, as she is fall risk and she may not need the amlodipine. I also put in for PT mahamed as I am concerned that she is not safe ambulating with a walker and needs the one assist with the walker or needs to be in a wheelchair. I attempted to call her HCP to confirm her wishes but was unable to reach her. I discussed my recommendations with Amaya Terrell. Thank you for this consultation. PATIENT TIME: Greater than 90 minutes spent doing the consultation, more than half the time spent in direct patient contact. [id number]/CPS #: [id number] MTDD
[2017-06-07 13:56] VITALS: BP 119/49
[2017-06-08] MEDS ORDERED: amLODIPine TAB* 5 MG PO SCH (09:00)
--- NOTE | 2017-06-08 12:32 | DS ---
DISCHARGE SUMMARY: DATE OF ADMISSION: 06/04/17 DATE OF DISCHARGE: 06/07/17 ATTENDING PROVIDER: Dr. Richard Man * (DICTATED BY ANGELICA MENESES NP) DISCHARGE DIAGNOSES: 1. Pancreatic cancer: Presumed, no biopsy as explained below. 2. Developmental delay: The patient lives in long-term and [id number] is healthcare proxy. 3. Hypertension: Medications adjusted for comfort care. 4. Gastroesophageal reflux disease: On PPI. DISCHARGE MEDICATIONS: 1. Lorazepam 0.5 mg p.o. q.4 hours p.r.n. anxiety, agitation, restless, nausea. 2. Morphine extended release 15 mg p.o. q.8 hours. 3. Ondansetron ODT 4 mg sublingual q.6 hours p.r.n. nausea, vomiting. 4. MiraLAX 17 g p.o. q. day p.r.n. constipation. 5. Prochlorperazine 10 mg p.o. q.6 hours p.r.n. nausea. 6. Scopolamine 1.5 mg transdermally q.72 hours. 7. Amlodipine 5 mg p.o. daily. 8. Oxycodone 10 mg p.o. q.4 hours p.r.n. pain. 9. Morphine oral concentrate 10 mg p.o./SL q.2 hours p.r.n. pain or dyspnea. 10. Artificial tears both eyes t.i.d. 11. Omeprazole 20 mg p.o. q. day. 12. Aspirin 81 mg p.o. q. day. 13. Levothyroxine 75 mcg p.o. q. day. 14. Oxybutynin 5 mg p.o. q. day. 15. Acetaminophen 650 mg p.o. q.4 hours p.r.n. fever/pain. HOSPITAL COURSE: Please see admission note for full H and P; however, briefly, Ms. Rogers presented to the ER on 06/04/17 with increasing abdominal pain following a discharge in April of 2017 with similar complaints having found a new 3-cm mass along the pancreas at that time. During the hospitalization in April, plan was made for palliative care measures only due to the patient's underlying performance status and wishes of the family. Unfortunately, while the patient had excellent care in the long-term, her pain was managed and she presented with continued decline. Over the last month, she had a 20- pound weight loss and was not eating very well due to significant nausea. Ms. Rogers was admitted to the hospital for hydration and evaluation of the pancreatic mass. CT scan of the chest, abdomen, and pelvis following day was obtained with continued progression of the pancreatic mass, felt to be the underlying cause of her symptoms. Dr. Baxter of GI was consulted for possible stent placement for drainage; however, she was not showing any elevation in her LFTs. It was felt that this would not provide much benefit. The patient's healthcare proxy felt that essentially the patient wanted comfort care measures and that any aggressive measures would not be well tolerated, therefore it was felt further workup was unnecessary. Dr. Nassar of Palliative Care was consulted to determine the patient's eligibility for hospice per family's request. Dr. Nassar felt that the patient was an excellent candidate with her presumed diagnosis of pancreatic cancer with significant progression over the last month and high symptom burden. The patient's healthcare proxy and long-term are willing to accept the patient today with plan for hospice sign on at some point next week. The patient will be discharged today with anti-nausea medications as adjusted during the hospitalization, pain medications as adjusted during hospitalization, and continued comfort pack with Ativan and oral morphine solution. No further followup was required and the hospice team will contact us should we be required to continue to follow. The family has our contact information should further workup or questions be required. ANGELICA MENESES NP [id number]/[facility] #: [id number] KIRILL
== END 2017-06-07 17:15 | disposition home or self-care (01) | DRG 948 ==
LOC: ED 12:41 → MED 19:44 → OBSVTOIN 06-05 14:15
PROVIDERS: ADMIT Internal Medicine Hematology & Oncology; ATTEND Internal Medicine Hematology & Oncology
DX: G89.3 Neoplasm related pain (acute) (chronic) (principal); C25.9 Malignant neoplasm of pancreas, unspecified; E86.0 Dehydration; I10 Essential (primary) hypertension; F41.9 Anxiety disorder, unspecified; E03.9 Hypothyroidism, unspecified; Z66 Do not resuscitate; F70 Mild intellectual disabilities; F42.9 Obsessive-compulsive disorder, unspecified; F98.8 Other specified behavioral and emotional disorders with onset usually occurring in childhood and adolescence; K21.9 Gastro-esophageal reflux disease without esophagitis; M19.90 Unspecified osteoarthritis, unspecified site; Z88.0 Allergy status to penicillin; Z79.82 Long term (current) use of aspirin; Z79.899 Other long term (current) drug therapy; Z79.1 Long term (current) use of non-steroidal anti-inflammatories (NSAID); Z79.891 Long term (current) use of opiate analgesic
CPT/HCPCS: 36415; 71010; 71260; 74177; 80048; 80053; 81003; 81015; 83605; 83690; 84484; 85025; 86140; 86301; 87077; 87086; 87186; 87641; 93005; 99232; A9270-GY; J1170; J2060; J2405; Q0164; Q9967